=== PATIENT | male | born 1955 | race Caucasian/White ===

== ENCOUNTER 2020-09-13 16:04 | Outpatient (REF) | payer MEDICARE, OTHER, SELFPAY | END 2020-09-13 16:05 | disposition home or self-care (01) | LOC: HO.LAB 16:04 | PROVIDERS: PCP Internal Medicine; Visit Provider Internal Medicine | DX: Z20.828 Contact with and (suspected) exposure to other viral communicable diseases (principal) | CPT/HCPCS: C9803; U0003 ==

== ENCOUNTER 2021-03-26 20:21 | Emergency (ER) | payer MEDICARE, OTHER, SELFPAY ==
--- NOTE | 2021-03-26 | ECG_ITS ---
Test Reason : ARRYTHMIA Blood Pressure : / mmHG Vent. Rate : 065 BPM Atrial Rate : 065 BPM P-R Int : 124 ms QRS Dur : 144 ms QT Int : 444 ms P-R-T Axes : 048 -29 027 degrees QTc Int : 461 ms Normal sinus rhythm Right bundle branch block Abnormal ECG When compared with ECG of 10-JUN-2020 20:34, No significant change was found Referred By: Generic ED Physician Electronically Signed By:Deangelo Santos
--- NOTE | ~2021-03-26 | XR_ITS ---
EXAMINATION: XR CHEST CLINICAL INFORMATION: Rule out pulmonary edema. COMPARISON: 06/10/2020 TECHNIQUE: Frontal view of the chest was obtained. FINDINGS: Normal cardiac and mediastinal silhouette. Cardiac leads overlie the chest. Lungs are well-expanded. No focal consolidation, effusion, edema or pneumothorax. No acute osseous abnormality seen. XR/XR chest 1V IMPRESSION: No focal consolidation or edema seen.
[2021-03-26 20:29] VITALS: BP 152/94; PULSE 69; RESP 18; TEMP 36.6; O2SAT 95; BMI 24.0
[2021-03-26 21:08] LABS: MANUAL DIFF FLAG NO
[2021-03-26 21:10] LABS: Basophils Percent Auto 0.6 % (0-2); Eosinophils Absolute Auto 0.3 X10*3/uL (0.0-0.4); Eosinophils Percent Auto 4.2 % (0-4); Hematocrit 45.3 % (42-52); Hemoglobin 15.3 g/dl (14.0-18.0); Imm Gran Abs Auto 0.03 X10*3/uL (0.00-0.03); Imm Gran Pct Auto 0.4 % (0.0-0.4); Lymphocytes Percent Auto 28.6 % (20-40); Mean Corpuscular HGB Conc 33.8 g/dl (31.0-36.0); Mean Corpuscular Volume 85.8 fL (80-98); Mean Platelet Volume 9.7 fL (9.4-12.4); Monocytes Absolute Auto 0.7 X10*3/uL (0.1-1.2); Monocytes Percent Auto 9.4 % (2-11); Neutrophils Percent Auto 56.8 % (45-73); Platelet Count 246 X10*3/uL (160-400); Red Blood Count 5.28 X10*6/uL (4.60-5.80); Red Cell Distribution Width 13.6 % (11.0-16.0); White Blood Count 7.1 X10*3/uL (4.8-10.8)
[2021-03-26 21:28] LABS: Anion Gap 15 (12-20); Blood Urea Nitrogen 21 mg/dL (9-16); Calcium 9.6 mg/dL (8.4-10.2); Carbon Dioxide 26 mmol/L (22-29); Chloride 106 mmol/L (96-108); Creatinine Clr Calc Pharmacy 77.9; Estimated Glomerular Filt Rate > 60; Glucose Random 101 mg/dL (60-115); Potassium 4.5 mmol/L (3.3-5.1); Sodium 142 mmol/L (135-145)
[2021-03-26 21:35] LABS: Troponin-I High Sensitivity < 3.5 ng/L (<3.5-35.0)
[2021-03-26 22:57] VITALS: BP 157/88; PULSE 52; TEMP 36.4; O2SAT 97
[2021-03-26 23:49] VITALS: PULSE 54
[2021-03-26 23:55] VITALS: BP 155/89; PULSE 57; RESP 18; O2SAT 98
--- NOTE | 2021-03-27 00:35 | ED_ITS ---
HPI - Arrhythmia/Palpitations General Chief Complaint: Arrhythmia/Palpitations Stated Complaint: ?Irregular arrhythmia Time Seen by Provider: 03/27/21 00:05 Source: patient Mode of arrival: ambulatory Limitations: no limitations History of Present Illness HPI narrative: Patient comes emergency room complaining of feeling nauseous, not feeling quite right, palpitations/rapid heart rate. Patient states earlier this afternoon, Related Data Previous Rx's Medication Instructions Recorded [id number] 3.5 1 drp OPHTHALMIC (EYE) Q6H 10 Days 03/01/21 mg/mL-10,000 unit/mL-0.1% eye drops #5 ml Allergies Allergy/AdvReac Type Severity Reaction Status Date / Time codeine [CODEINE] Allergy Severe PASSED Verified 03/26/21 20:44 OUT , Passed out [facility] Past Medical History Medical History (Updated 03/27/21 @ 02:14 by Olivia Diop MD) Atrial flutter Surgical History (Updated 03/26/21 @ 20:41 by Tabatha Palomo RN) History of cardiac radiofrequency ablation Social History Social History Alcohol intake: current Alcohol intake frequency: 0-2 drinks per day Alcohol type: beer Patient Tobacco Use Status: Never used Tobacco Smoked in Last 30 Days: No Use of substances other than those prescribed or required for medical reasons: No Advance Directives: No Advance Directives Information Provided: No Physical Exam Vital Signs: Vital Signs: Last Vital Signs Temp 97.6 F 03/26/21 22:57 Pulse 57 03/26/21 23:55 Resp 18 03/26/21 23:55 BP 155/89 H 03/26/21 23:55 Pulse Ox 98 03/26/21 23:55 Body Mass Index 24.0 Course Course Course Narrative: Patient states that since he has been in the emergency room, he feels much better, no longer feeling lousy , denies palpitations, chest pain or shortness of breath. Patient has been on the vehicle monitor technician and he has been in constant sinus rhythm. Chest x-ray within normal limits, BMP normal, troponin x2 normal. I discussed with the patient and his that the cardiology consult is pending, at this time, it seems that Dr. Santos is likely in the cardiac catheterization lab. Patient states that he feels well and would like to be discharged home, does not want to wait for the cardiology consult. I discussed the options with the patient, we can start him on low-dose metoprolol twice a day until he follows up with cardiology on Sunday. Patient states that at this time he does not want to start metoprolol scheduled because metoprolol makes him feel tired, he prefers to take it PRN, he states that he has enough tablets at home. I discussed with the patient that he has any further or repeating symptoms, he needs to return to the emergency room, agrees with plan. On discharge, blood pressure 143/86, heart rate 86. MDM - Arrhythmia/Palpitations Lab Data Result diagrams: 03/26/21 21:03 03/26/21 21:03 Labs: Lab Results 03/26/21 03/26/21 03/26/21 Range/Units 21: 21:03 21:03 WBC 7.1 (4.8-10.8) X10*3/uL RBC 5.28 (4.60-5.80) X10*6/uL Hgb 15.3 (14.0-18.0) g/dl Hct 45.3 (42-52) % MCV 85.8 (80-98) fL MCH 29.0 (27.0-33.0) pg MCHC 33.8 (31.0-36.0) g/dl RDW 13.6 (11.0-16.0) % Plt Count 246 (160-400) X10*3/uL MPV 9.7 (9.4-12.4) fL Immature Gran % (Auto) 0.4 (0.0-0.4) % Neut % (Auto) 56.8 (45-73) % Lymph % (Auto) 28.6 (20-40) % Titus % (Auto) 9.4 (2-11) % Eos % (Auto) 4.2 H (0-4) % Baso % (Auto) 0.6 (0-2) % Lymph # (Auto) 2.0 (1.2-4.9) X10*3/uL Titus # (Auto) 0.7 (0.1-1.2) X10*3/uL Eos # (Auto) 0.3 (0.0-0.4) X10*3/uL Baso # (Auto) 0.0 (0.0-0.2) X10*3/uL Abs Immat Gran (auto) 0.03 (0.00-0.03) X10*3/uL Absolute Neuts (auto) 4.0 (2.0-8.3) X10*3/uL Absolute Nucleated RBC 0.000 (0.0-0.012) X10*3/uL Nucleated RBC % (auto) 0.0 (0.0-0.2) /100WBC Hold Blue Top SEE NOTE Sodium 142 (135-145) mmol/L Potassium 4.5 (3.3-5.1) mmol/L Chloride 106 (96-108) mmol/L Carbon Dioxide 26 (22-29) mmol/L Anion Gap 15 (12-20) BUN 21 H (9-16) mg/dL Creatinine 0.98 (0.5-1.4) mg/dL Estim Creat Clear Calc 77.9 Estimated GFR > 60 Random Glucose 101 (60-115) mg/dL Calcium 9.6 (8.4-10.2) mg/dL Troponin I High Sens (<3.5-35.0) ng/L B-Natriuretic Peptide (<100) pg/mL 03/26/21 03/27/21 Range/Units 21:03 00:34 WBC (4.8-10.8) X10*3/uL RBC (4.60-5.80) X10*6/uL Hgb (14.0-18.0) g/dl Hct (42-52) % MCV (80-98) fL MCH (27.0-33.0) pg MCHC (31.0-36.0) g/dl RDW (11.0-16.0) % Plt Count (160-400) X10*3/uL MPV (9.4-12.4) fL Immature Gran % (Auto) (0.0-0.4) % Neut % (Auto) (45-73) % Lymph % (Auto) (20-40) % Titus % (Auto) (2-11) % Eos % (Auto) (0-4) % Baso % (Auto) (0-2) % Lymph # (Auto) (1.2-4.9) X10*3/uL Titus # (Auto) (0.1-1.2) X10*3/uL Eos # (Auto) (0.0-0.4) X10*3/uL Baso # (Auto) (0.0-0.2) X10*3/uL Abs Immat Gran (auto) (0.00-0.03) X10*3/uL Absolute Neuts (auto) (2.0-8.3) X10*3/uL Absolute Nucleated RBC (0.0-0.012) X10*3/uL Nucleated RBC % (auto) (0.0-0.2) /100WBC Hold Blue Top Sodium (135-145) mmol/L Potassium (3.3-5.1) mmol/L Chloride (96-108) mmol/L Carbon Dioxide (22-29) mmol/L Anion Gap (12-20) BUN (9-16) mg/dL Creatinine (0.5-1.4) mg/dL Estim Creat Clear Calc Estimated GFR Random Glucose (60-115) mg/dL Calcium (8.4-10.2) mg/dL Troponin I High Sens < 3.5 < 3.5 (<3.5-35.0) ng/L B-Natriuretic Peptide 12 (<100) pg/mL Imaging Data Chest x-ray: Radiologist's impression: Normal cardiac and mediastinal silhouette. Cardiac leads overlie the chest. Lungs are well-expanded. No focal consolidation, effusion, edema or pneumothorax. No acute osseous abnormality seen. XR/XR chest 1V IMPRESSION: No focal consolidation or edema seen. ECG Data Attestation: I personally reviewed and interpreted this ECG as follows: (Send rhythm, right bundle branch block, heart rate 65, QTC 461, no acute changes from EKG from May 2020) Discharge Plan Discharge Clinical Impression: Racing heart beat, Malaise Patient Disposition: Home, Self-Care Instructions: Heart Palpitations (ED) Additional Instructions: Please follow-up with your primary care physician tomorrow. If you have any worsening or new symptoms, please return to the emergency room or call 911 Prescriptions: No Action neomycin-polymyxin B-dexameth 3.5mg/mL-10,000 unit/mL-0.1 % drops,suspension 1 drp ophthalmic (eye) Q6H 10 Days Qty: 5 RF: 0 Referrals: Kailash,Uriel, MD [Physician] - 2 days
[2021-03-27 01:55] LABS: B Type Natriuretic Peptide 12 pg/mL (<100); Troponin-I High Sensitivity < 3.5 ng/L (<3.5-35.0)
== END 2021-03-27 02:38 | disposition home or self-care (01) ==
PROVIDERS: Emergency Provider Emergency Medicine; PCP Internal Medicine
DX: R00.2 Palpitations (principal); R06.02 Shortness of breath; R53.81 Other malaise; Z79.899 Other long term (current) drug therapy
CPT/HCPCS: 36415; 71045; 80048; 83880; 84484; 85025; 93005; 99285

== ENCOUNTER 2021-05-12 10:33 | Outpatient (REF) | payer MEDICARE, OTHER, SELFPAY ==
[2021-05-12 10:37] LABS: MANUAL DIFF FLAG NO
[2021-05-12 10:46] LABS: Glucose Urine UA NEG (NEG); Leukocyte Esterase Urine NEG (NEG); Nitrite Urine NEG (NEG); Specific Gravity - Urine 1.025 (1.005-1.025); Urine Blood NEG (NEG); Urine Ketones NEG (NEG); Urine Protein NEG (NEG-TRACE)
[2021-05-12 10:49] LABS: Appearance Urine CLEAR; Basophils Percent Auto 0.5 % (0-2); Color Urine YELLOW; Eosinophils Absolute Auto 0.2 X10*3/uL (0.0-0.4); Eosinophils Percent Auto 2.8 % (0-4); Hematocrit 47.9 % (42-52); Hemoglobin 16.1 g/dl (14.0-18.0); Imm Gran Abs Auto 0.03 X10*3/uL (0.00-0.03); Imm Gran Pct Auto 0.4 % (0.0-0.4); Lymphocytes Absolute Auto 2.6 X10*3/uL (1.2-4.9); Lymphocytes Percent Auto 34.3 % (20-40); Mean Corpuscular HGB Conc 33.6 g/dl (31.0-36.0); Mean Corpuscular Hemoglobin 29.2 pg (27.0-33.0); Mean Corpuscular Volume 86.8 fL (80-98); Monocytes Absolute Auto 0.8 X10*3/uL (0.1-1.2); Monocytes Percent Auto 10.3 % (2-11); Neutrophils Absolute Auto 3.9 X10*3/uL (2.0-8.3); Neutrophils Percent Auto 51.7 % (45-73); Platelet Count 261 X10*3/uL (160-400); Red Blood Count 5.52 X10*6/uL (4.60-5.80); White Blood Count 7.6 X10*3/uL (4.8-10.8)
[2021-05-12 10:58] LABS: Alanine Aminotransferase 22 U/L (0-40); Albumin Level 4.3 g/dL (3.5-5.0); Alkaline Phosphatase 65 U/L (39-117); Anion Gap 12 (12-20); Aspartate Amino Transferase 19 U/L (5-37); Bilirubin Total 1.1 mg/dL (0.0-1.0); Blood Urea Nitrogen 19 mg/dL (9-16); Calcium 9.4 mg/dL (8.4-10.2); Carbon Dioxide 29 mmol/L (22-29); Chloride 103 mmol/L (96-108); Cholesterol 206 mg/dL; Estimated Glomerular Filt Rate > 60; Glucose Fasting 99 mg/dL (60-99); HDL Cholesterol 50 mg/dL; LDL Cholesterol Calculated 135 mg/dl; Potassium 4.1 mmol/L (3.3-5.1); Sodium 140 mmol/L (135-145); Total Protein 6.4 g/dL (6.5-8.0); Triglycerides 105 mg/dL
[2021-05-12 11:00] LABS: Estimated Average Glucose 108 mg/dL; Hemoglobin A1c % 5.4 %
[2021-05-12 11:19] LABS: PSA,Total (Free>4and<10) 0.95 ng/mL (0.00-4.00)
== END 2021-05-12 10:34 | disposition home or self-care (01) ==
LOC: HO.LNP 10:33
PROVIDERS: Visit Provider Internal Medicine
DX: Z12.5 Encounter for screening for malignant neoplasm of prostate (principal); R73.03 Prediabetes; R79.9 Abnormal finding of blood chemistry, unspecified; E78.00 Pure hypercholesterolemia, unspecified
CPT/HCPCS: 80053; 80061; 81003; 83036; 84153; 85025

== ENCOUNTER → 2021-06-16 09:51 | Outpatient (BNVA) | payer MEDICARE, OTHER, SELFPAY | PROVIDERS: PCP Internal Medicine; Visit Provider Internal Medicine | DX: R07.2 Precordial pain (principal); Z98.890 Other specified postprocedural states; Z86.79 Personal history of other diseases of the circulatory system | CPT/HCPCS: 93005; 99212 ==

== ENCOUNTER 2021-07-01 09:31 | Outpatient (REF) | payer MEDICARE, OTHER, SELFPAY ==
[2021-07-01 11:17] LABS: Anion Gap 10 (12-20); Blood Urea Nitrogen 14 mg/dL (9-16); Calcium 9.8 mg/dL (8.4-10.2); Carbon Dioxide 31 mmol/L (22-29); Chloride 106 mmol/L (96-108); Estimated Glomerular Filt Rate > 60; Glucose Random 96 mg/dL (60-115); Sodium 142 mmol/L (135-145)
== END 2021-07-01 09:32 | disposition home or self-care (01) ==
LOC: HO.LAB 09:31
PROVIDERS: PCP Internal Medicine; Visit Provider Internal Medicine
DX: R07.2 Precordial pain (principal)
CPT/HCPCS: 36415; 80048

== ENCOUNTER → 2021-07-01 14:36 | Outpatient (REF) | payer MEDICARE, OTHER, SELFPAY | LOC: HO.CARD 14:36 | PROVIDERS: Visit Provider Internal Medicine | DX: Z13.89 Encounter for screening for other disorder (principal) ==

== ENCOUNTER → 2021-07-04 07:38 | Outpatient (REF) | payer MEDICARE, OTHER, SELFPAY ==
--- NOTE | 2021-07-04 07:41 | CA_ITS ---
Transthoracic Echocardiogram Patient (Last, First, Middle): Asher Cano W Gender: Male Date of : 1955 Age: 65 Procedure Date: 07/04/2021 Procedure Type: Transthoracic Echocardiogram Location: OP Height: 180.34 cm Weight: 78.02 kg BSA: 1.98 m2 Heart Rate: bpm BP: 130 / 80 mmHg Printer Slotter Operator: RAYO Referring MD: Uriel Linder MD Symptoms: R07.2 - Precordial pain Study Quality: Fair ECG Rhythm: Sinus Conclusions: - The left ventricular systolic function is normal. The calculated ejection fraction is 58% by biplane method. - No obvious valvular pathology seen on this study. Findings Left Ventricle Normal left ventricular cavity size. There is normal left ventricular wall thickness. The left ventricular systolic function is normal. The calculated ejection fraction is 58% by biplane method. There is no evidence of regional wall motion abnormalities. Diastolic function is normal for age. Right Ventricle Normal right ventricular cavity size and systolic function. Atria Both atria are normal in size. Aortic Valve There is a normal trileaflet aortic valve. There is no aortic valve stenosis. There is no aortic valve regurgitation. Mitral Valve The mitral valve appears normal. There is no mitral valve regurgitation. There is no mitral valve stenosis. Pulmonic Valve The pulmonic valve was not well visualized. Tricuspid Valve Normal tricuspid valve structure. There is trace tricuspid valve regurgitation. The pulmonary artery systolic pressure is normal. Great Vessels The aortic arch is normal in size. Top normal ascending aortic size at 3.9cm. Venous The inferior vena cava is normal in size and collapses greater than 50% with inspiration. Pericardium/Pleural There is no evidence of pericardial effusion. Prior Study Comparison No significant change compared to prior study dated: 11/14/2019. Recommendations, Care & Conclusions No obvious valvular pathology seen on this study. Measurements 2D Linear Measurements IVSd: 0.98 0.6-0.9/0.6-1.0 cm LVIDd: 4.95 3.9-5.3/4.2-5.9 cm LVIDd Index: 2.50 2.4-3.2/2.2-3.1 cm/m2 LVIDs: 2.76 2.0-3.6 cm LVPWd: 0.91 0.7-1.1 cm Ao Root: 4.10 2.1-3.5 cm LA Diam: 3.20 2.7-3.8/3.0-4.0 cm LAIDs Index: 1.62 1.5-2.3 cm/m2 LV Mass: 206.24 67-162/88-224 g LV Mass Index: 104.16 43-95/49-115 g/m2 LVOT Diam: 2.00 3.0+(-)1.3 cm 2D Systolic Function EF 4C: 55.40 >55% EF 2C: 65.50 >55% EF BiP: 57.80 >55% Mitral Valve MV Pk E: 0.50 MV PK A: 0.53 MV Decel Time: 251.00 E/A: 0.90 E'Lateral: 9.36 E'Medial: 8.16 E/E' Med: 6.10 E/E' Lat: 5.30 PHT: 73.00 MVA PHT: 3.01 Decel [place]: 1.98 Aortic Valve AoV Pk Parth: 1.23 AoV Mn Parth: 0.84 AoV VTI: 0.24 AoV Pk Grad: 6.00 Aov Mn Grad: 3.00 BRITTANY Cont.VTI: 2.69 LVOT LVOT Pk Parth: 1.05 LVOT Mn Parth: 0.71 LVOT VTI: 0.20 LVOT Pk Grad: 4.00 LVOT Mn Grad: 2.00 LVOT Diam: 2.00 LVOT Area: 3.14 Diastolic Function MV Pk E: 0.50 MV Pk A: 0.53 E/A: 0.90 E'Medial: 8.16 E/E' Med: 6.10 E' Laterial: 9.36 E/E' Lat: 5.30 Right Ventricle TAPSE (mm): 1.92 TVS' Parth: 12.80 Tricuspid Valve TR Pk Parth: 1.74 TR Pk Grad: 12.00 RA Press: 3.00 RVSP: 15.00 Great Vessels Aorta Ao Root-2D: 4.10 2.0-3.7 cm Ao Asc: 3.90 2.1-3.4 cm Ao Arch: 3.20 Updated in Other Vendor System with Status of Final Uriel Linder MD electronically signed on 07/05/2021 12:32:13 PM with status of Final
== END ==
LOC: HO.CARD 07:38
PROVIDERS: Visit Provider Internal Medicine
DX: R07.2 Precordial pain (principal)
CPT/HCPCS: 93306

== ENCOUNTER → 2021-08-08 13:28 | Outpatient (BNVA) | payer MEDICARE, OTHER, SELFPAY | PROVIDERS: PCP Internal Medicine; Referring Provider Internal Medicine; Visit Provider Internal Medicine | DX: I25.10 Atherosclerotic heart disease of native coronary artery without angina pectoris (principal); I48.3 Typical atrial flutter; Z98.890 Other specified postprocedural states; Z86.79 Personal history of other diseases of the circulatory system | CPT/HCPCS: 99212 ==

== ENCOUNTER 2021-09-30 10:17 | Outpatient (REF) | payer MEDICARE, OTHER, SELFPAY ==
--- NOTE | ~2021-09-30 | FL_ITS ---
EXAMINATION: XR FLUOROSCOPY UPPER GI WITH AIR CLINICAL INFORMATION: GERD, burping. COMPARISON: None TECHNIQUE: Routine upper GI air-contrast study was performed in the upright and lying positions. FINDINGS: On oral administration of thick barium and effervescent granules, there is normal propagation of the bolus from the oral cavity through the pharynx, esophagus into the stomach without any evidence of obstruction, narrowing or stricture. On placing the patient supine, the course, caliber and peristalsis of the stomach are normal. There is mild gastroesophageal reflux but no hiatal hernia is seen. The mucosal pattern of the esophagus, stomach and the duodenum is normal. FLUOROSCOPY TIME: 1.8 minutes DOSE AREA PRODUCT: 17.35 uGy-m2 (microgray-meter squared) FL/FL upper GI w air IMPRESSION: Mild gastroesophageal reflux without hiatal hernia.
== END 2021-09-30 10:18 | disposition home or self-care (01) ==
LOC: HO.XRAY 10:17
PROVIDERS: Visit Provider Internal Medicine
DX: K21.00 Gastro-esophageal reflux disease with esophagitis, without bleeding (principal)
CPT/HCPCS: 74246

== ENCOUNTER 2021-11-08 06:49 | Outpatient (REF) | payer MEDICARE, OTHER, SELFPAY ==
[2021-11-08 07:28] LABS: Alanine Aminotransferase 27 U/L (0-40); Albumin Level 4.4 g/dL (3.5-5.0); Alkaline Phosphatase 68 U/L (39-117); Aspartate Amino Transferase 21 U/L (5-37); Bilirubin Direct 0.4 mg/dL (0.0-0.5); Cholesterol 147 mg/dL; HDL Cholesterol 51 mg/dL; LDL Cholesterol Calculated 80 mg/dl; Total Protein 6.7 g/dL (6.5-8.0); Triglycerides 84 mg/dL
== END 2021-11-08 06:50 | disposition home or self-care (01) ==
LOC: HO.LAB 06:49
PROVIDERS: PCP Internal Medicine; Visit Provider Internal Medicine
DX: I25.10 Atherosclerotic heart disease of native coronary artery without angina pectoris (principal); E78.5 Hyperlipidemia, unspecified
CPT/HCPCS: 36415; 80061; 80076

== ENCOUNTER 2022-01-31 10:21 | Day surgery (SDC) | payer MEDICARE, OTHER, SELFPAY ==
[2022-01-26 10:00] VITALS: BMI 24.3
--- NOTE | 2022-01-30 10:43 | HO.ANESPROP2 ---
Documented by User: Supriya Moran NP 01/30/22 10:53 HPI - Anesthesia Eval Consult details Narrative: 66yo M for Upper Endoscopy and Colonoscopy [facility] Active Problems Active Problems: All Active Problems (Updated 01/26/22 @ 09:54 by Julienne Marcano RN) Eye foreign body (Acute) Abrasion of sclera of left eye (Acute) Status post ablation of atrial flutter (Acute) Precordial chest pain (Acute) Atherosclerotic cardiovascular disease (Acute) Typical atrial flutter (Acute) Past Medical History Medical History (Updated 01/30/22 @ 10:45 by Supriya Moran NP) Elevated cholesterol Typical atrial flutter Surgical History Surgical History (Updated 01/26/22 @ 09:54 by Julienne Marcano RN) H/O colonoscopy History of cardiac radiofrequency ablation Hx of appendectomy Social History Social History Alcohol intake: current Alcohol intake frequency: 0-2 drinks per day Alcohol type: beer Patient Tobacco Use Status: Never used Tobacco Advance Directives: No Advance Directives Information Provided: Yes Advance Directives on File: No Meds Allergies Allergy/AdvReac Type Severity Reaction Status Date / Time codeine [CODEINE] Allergy Severe passed Verified 01/26/22 10:00 out Exam Exam Date and Time: January 30, 2022 1043 Height,Weight and Vital Signs: Height 5 ft 11 in Weight 78.925 kg Pertinent Lab Results Pertinent Lab Results: Laboratory Tests 05/12/21 07/01/21 07:25 09:41 WBC 7.6 Hgb 16.1 Hct 47.9 Plt Count 261 Sodium 142 Potassium 5.0 D Chloride 106 Carbon Dioxide 31 H BUN 14 Creatinine 1.00 Narrative Narrative: EKG 05/2021 sinus rhythm at 69/Min; leftward axis; right bundle-branch block and similar to prior. ECHO 06/2021 Conclusions: - The left ventricular systolic function is normal.? The ? calculated ejection fraction is 58% by biplane method. ? - No obvious valvular pathology seen on this study.?? Per cardiac note: Coronary CT shows nonobstructive coronary disease but nothing of significance. Assessment and Plan Assessment Anesthesia Assessment: Chart Reviewed Documented by User: Jose Francisco Costa MD 01/31/22 12:22 PMF Past Medical History Medical History (Updated 01/30/22 @ 10:45 by Supriya Moran NP) Elevated cholesterol Typical atrial flutter Family History Family history of problems with anesthesia: No Surgical History Surgical History (Updated 01/26/22 @ 09:54 by Julienne Marcano RN) H/O colonoscopy History of cardiac radiofrequency ablation Hx of appendectomy History of Problems with Anesthesia: No Social History Social History Alcohol intake: current Alcohol intake frequency: 0-2 drinks per day Alcohol type: beer Patient Tobacco Use Status: Never used Tobacco Advance Directives: No Advance Directives Information Provided: Yes Advance Directives on File: No Meds Allergies Allergy/AdvReac Type Severity Reaction Status Date / Time codeine [CODEINE] Allergy Severe passed Verified 01/26/22 10:00 out Exam Airway Mallampati Class: II TM Dist: >3cm Neck ROM: Full Assessment and Plan Assessment Anesthesia Assessment: Anesthesia Plan Discussed Final Anesthetic Review Family History of Problems with Anesthesia: No History of Problems with Anesthesia: No NPO: Yes ASA Class: II Final Preanesthetic Review: No Changes in Pt Med Stat, Meds/Allgs Chart Reviewed, Consent Obtained/Reviewed and Anes Risks/Benef Reviewed Patient Risk: Low Procedure Risk: Low Anesthetic Plan Anesthetic Plan: MAC: Disposition: Standard PACU
[2022-01-31 11:01] VITALS: BP 141/92; PULSE 91; RESP 16; TEMP 36.9; O2SAT 98; BMI 24.0
[2022-01-31] MEDS: Lactated Ringers 1,000 ML 100 ML IVCONT (11:11)
--- NOTE | 2022-01-31 12:17 | MHC.SHP ---
Pre-Procedural Eval Section A Date of Service: 01/31/22 The patient is an INPATIENT: No Changes since office visit: No Cold of Flu in the past 2 weeks, No New Medical Problems, No Changes in Medication and No Patient answered all questions The History & Physical has been completed within 30 days and I have reviewed it.: Yes Section B Chief Complaint: screening,reflux disease Allergies: Allergies Allergy/AdvReac Type Severity Reaction Status Date / Time codeine [CODEINE] Allergy Severe passed Verified 01/26/22 10:00 out Plan I have reviewed the history and physical and performed a pertinent physical examination on my patient. No changes have occurred unless specified.
--- NOTE | 2022-01-31 13:21 | PM.OP ---
Brief Operative Note Date of Service: 01/31/22 Pre-op diagnosis: screening gerd Post-op diagnosis: same (colon polyps) Procedure: egd, colon Surgeon: Kevin Jaimes Anesthesia: MAC Was an Internet Marketing Manager used for this Procedure?: No Estimated blood loss (mL): 5 Pathology: other (see req) Condition: stable Disposition: PACU
[2022-01-31 13:25] VITALS: BP 93/47; PULSE 85; RESP 14; TEMP 36.6; O2SAT 97
[2022-01-31 13:40] VITALS: BP 110/71; PULSE 72; RESP 17; TEMP 36.1; O2SAT 99
--- NOTE | 2022-01-31 23:41 | OP_ITS ---
SURGEON: Kevin Jaimes MD INDICATIONS: 1. Gastroesophageal reflux disease. 2. Colon cancer screening. PREOPERATIVE DIAGNOSIS: POSTOPERATIVE DIAGNOSIS: PROCEDURE PERFORMED: 1. Upper endoscopy with biopsy. 2. Colonoscopy to the terminal ileum with biopsy, snare polypectomy, and cauterization of colon polyps. ESTIMATED BLOOD LOSS: COMPLICATIONS: ANESTHESIA: Medications, monitored anesthesia care. ASSISTANTS: SPECIMENS: DESCRIPTION OF PROCEDURE: History and physical performed. The risks and benefits of the procedure were explained to the patient. Informed consent was obtained. The patient was placed in the left lateral decubitus position. The Olympus video gastroscope was introduced into the esophagus, stomach, and duodenum. Examination was performed, and the scope was removed. He was repositioned for colonoscopy. Digital rectal exam was performed and was found to be normal. The Olympus pediatric video colonoscope was introduced into the rectum and advanced to the cecum without difficulty. The cecum was identified by transillumination, palpation, and identification of the ileocecal valve. Examination was performed. The scope was removed. He tolerated both procedures well and was taken to recovery area in stable condition. FINDINGS: Upper endoscopy: 1. Esophagus: The esophagus was normal. There was no esophagitis. There was a 1 cm area of possible Ramirez esophagus at the EG junction. Biopsies were obtained in all 4 quadrants at the EG junction. 2. Stomach: The stomach was normal. Antral biopsies were obtained to rule out H pylori. 3. Duodenum: The bulb and second portion were normal. Colonoscopy: The terminal ileum was normal. In the cecum, were about a total of 6 polyps, the largest measuring approximately 12 mm. These were removed with a snare biopsy forceps and the bases of several along the ileocecal valve were cauterized. The quality of the prep was good. No other polyps were identified. There was mild diverticulosis. Retroflexed examination showed small internal hemorrhoids. IMPRESSION: 1. Gastroesophageal reflux disease. 2. Colon polyps. RECOMMENDATION: Follow up the biopsy results. MD GOLDY Cantu/SHRUTHIL / [phone]
== END 2022-01-31 13:57 | disposition home or self-care (01) ==
PROVIDERS: PCP Internal Medicine; Visit Provider Internal Medicine Gastroenterology
PROC: (CPT 45385; principal; 2022-01-31 11:30)
DX: Z12.11 Encounter for screening for malignant neoplasm of colon (principal); D12.0 Benign neoplasm of cecum; K21.9 Gastro-esophageal reflux disease without esophagitis; K22.70 Barrett's esophagus without dysplasia; E78.00 Pure hypercholesterolemia, unspecified; I48.3 Typical atrial flutter; Z79.899 Other long term (current) drug therapy; Z88.8 Allergy status to other drugs, medicaments and biological substances
CPT/HCPCS: 45385; 45380; 43239; 88305; 88342

== ENCOUNTER 2022-05-16 11:25 | Outpatient (REF) | payer MEDICARE, OTHER, SELFPAY ==
[2022-05-16 11:31] LABS: MANUAL DIFF FLAG NO
[2022-05-16 11:43] LABS: Basophils Percent Auto 0.7 % (0-2); Eosinophils Absolute Auto 0.2 X10*3/uL (0.0-0.4); Eosinophils Percent Auto 2.5 % (0-4); Hematocrit 45.2 % (42.0-52.0); Hemoglobin 15.4 g/dl (14.0-18.0); Imm Gran Abs Auto 0.02 X10*3/uL (0.00-0.03); Imm Gran Pct Auto 0.3 % (0.0-0.4); Lymphocytes Percent Auto 33.6 % (20-40); Mean Corpuscular HGB Conc 34.1 g/dl (31.0-36.0); Mean Corpuscular Hemoglobin 29.2 pg (27.0-33.0); Mean Corpuscular Volume 85.6 fL (80.0-98.0); Mean Platelet Volume 10.3 fL (9.4-12.4); Monocytes Absolute Auto 0.6 X10*3/uL (0.1-1.2); Neutrophils Absolute Auto 3.2 x10*3/uL (2.0-8.3); Neutrophils Percent Auto 52.9 % (45-73); Platelet Count 225 X10*3/uL (160-400); Red Blood Count 5.28 X10*6/uL (4.60-5.80); Red Cell Distribution Width 13.5 % (11.0-16.0)
[2022-05-16 11:46] LABS: Estimated Average Glucose 108 mg/dL; Hemoglobin A1c % 5.4 %
[2022-05-16 12:05] LABS: Appearance Urine CLEAR; Color Urine YELLOW; Glucose Urine UA NEG (NEG); Leukocyte Esterase Urine NEG (NEG); Nitrite Urine NEG (NEG); Specific Gravity - Urine >= 1.030 (1.005-1.025); Urine Blood NEG (NEG); Urine Ketones 5 MG/DL (NEG); Urine Protein NEG (NEG-TRACE)
[2022-05-16 12:07] LABS: Creatinine Urine 249.52 mg/dL; Microalbum/Creatinine Ratio Ur 7.2 ug/mg cr
[2022-05-16 12:13] LABS: Alanine Aminotransferase 54 U/L (0-40); Albumin Level 4.2 g/dL (3.5-5.0); Alkaline Phosphatase 71 U/L (39-117); Anion Gap 12 (12-20); Aspartate Amino Transferase 35 U/L (5-37); Bilirubin Total 0.7 mg/dL (0.0-1.0); Blood Urea Nitrogen 20 mg/dL (9-16); Calcium 8.5 mg/dL (8.4-10.2); Carbon Dioxide 27 mmol/L (22-29); Chloride 107 mmol/L (96-108); Cholesterol 115 mg/dL; Estimated Glomerular Filt Rate > 60; Glucose Fasting 83 mg/dL (60-99); HDL Cholesterol 36 mg/dL; LDL Cholesterol Calculated 69 mg/dl; Potassium 3.7 mmol/L (3.3-5.1); Sodium 142 mmol/L (135-145); Total Protein 6.1 g/dL (6.5-8.0); Triglycerides 52 mg/dL
[2022-05-16 12:33] LABS: PSA,Total (Free>4and<10) 0.65 ng/mL (0.00-4.00)
[2022-05-16 15:17] LABS: Bacteria Urine 1+ /LPF; RBC Urine 0 /HPF (0); WBC Urine 0 /HPF (0-4)
== END 2022-05-16 11:26 | disposition home or self-care (01) ==
LOC: HO.LNP 11:25
PROVIDERS: Visit Provider Internal Medicine
DX: Z12.5 Encounter for screening for malignant neoplasm of prostate (principal); E78.00 Pure hypercholesterolemia, unspecified; R73.03 Prediabetes
CPT/HCPCS: 80053; 80061; 81001; 82043; 83036; 84153; 85025

== ENCOUNTER 2022-07-20 04:52 | Observation (INO) | payer MEDICARE, OTHER, SELFPAY ==
[2022-07-20] VITALS (8 sets, daily range): BP systolic 117–158; BP diastolic 2–82; PULSE 59–79; RESP 15–18; TEMP 36.3–36.8; O2SAT 97–100; BMI 24.0
--- NOTE | ~2022-07-20 | XR_ITS ---
EXAMINATION: XR CHEST CLINICAL INFORMATION: Syncope COMPARISON: 03/27/2021 TECHNIQUE: Frontal view of the chest was obtained. FINDINGS: Lungs are well-inflated and clear. Trachea is midline in position. No interstitial disease, consolidation or mass. No pleural effusion or pneumothorax. Cardiac silhouette and pulmonary vessels are normal in size. The mediastinum and bryant have normal contour. The visualized bones, and upper abdomen, are unremarkable. XR/XR chest 1V IMPRESSION: No acute cardiopulmonary abnormality.
--- NOTE | 2022-07-20 04:57 | ECG_ITS ---
Test Reason : SYNCPC Blood Pressure : / mmHG Vent. Rate : 063 BPM Atrial Rate : 063 BPM P-R Int : 132 ms QRS Dur : 142 ms QT Int : 432 ms P-R-T Axes : 067 -45 051 degrees QTc Int : 442 ms Normal sinus rhythm Right bundle branch block Left anterior fascicular block Bifascicular block Abnormal ECG When compared with ECG of 26-MAR-2021 20:33, Left anterior fascicular block is now Present Referred By: Generic ED Physician Electronically Signed By:SUMI ROGEL
[2022-07-20 06:04] LABS: MANUAL DIFF FLAG NO
[2022-07-20 06:07] LABS: Basophils Absolute Auto 0.1 X10*3/uL (0.0-0.2); Basophils Percent Auto 0.4 % (0-2); Eosinophils Absolute Auto 0.1 X10*3/uL (0.0-0.4); Eosinophils Percent Auto 1.1 % (0-4); Hematocrit 49.7 % (42.0-52.0); Hemoglobin 17.1 g/dl (14.0-18.0); Imm Gran Abs Auto 0.07 X10*3/uL (0.00-0.03); Imm Gran Pct Auto 0.6 % (0.0-0.4); Lymphocytes Absolute Auto 1.8 X10*3/uL (1.2-4.9); Lymphocytes Percent Auto 15.7 % (20-40); Mean Corpuscular HGB Conc 34.4 g/dl (31.0-36.0); Mean Corpuscular Hemoglobin 29.2 pg (27.0-33.0); Mean Corpuscular Volume 84.8 fL (80.0-98.0); Mean Platelet Volume 9.9 fL (9.4-12.4); Monocytes Percent Auto 9.1 % (2-11); Neutrophils Absolute Auto 8.2 x10*3/uL (2.0-8.3); Neutrophils Percent Auto 73.1 % (45-73); Platelet Count 243 X10*3/uL (160-400); Red Blood Count 5.86 X10*6/uL (4.60-5.80); Red Cell Distribution Width 13.6 % (11.0-16.0); White Blood Count 11.2 X10*3/uL (4.8-10.8)
[2022-07-20 06:11] LABS: Blood Urea Nitrogen 23 mg/dL (9-16); Chloride 105 mmol/L (96-108); Estimated Glomerular Filt Rate > 60; Potassium 4.1 mmol/L (3.3-5.1); Sodium 144 mmol/L (135-145)
[2022-07-20 06:12] LABS: Basophils Absolute Auto 0.1 X10*3/uL (0.0-0.2); Basophils Percent Auto 0.4 % (0-2); Eosinophils Absolute Auto 0.1 X10*3/uL (0.0-0.4); Eosinophils Percent Auto 1.1 % (0-4); Hematocrit 49.7 % (42.0-52.0); Hemoglobin 17.1 g/dl (14.0-18.0); Imm Gran Abs Auto 0.07 X10*3/uL (0.00-0.03); Imm Gran Pct Auto 0.6 % (0.0-0.4); Lymphocytes Absolute Auto 1.8 X10*3/uL (1.2-4.9); Lymphocytes Percent Auto 15.7 % (20-40); MANUAL DIFF FLAG NO; Mean Corpuscular HGB Conc 34.4 g/dl (31.0-36.0); Mean Corpuscular Hemoglobin 29.2 pg (27.0-33.0); Mean Corpuscular Volume 84.8 fL (80.0-98.0); Mean Platelet Volume 9.9 fL (9.4-12.4); Monocytes Percent Auto 9.1 % (2-11); Neutrophils Absolute Auto 8.2 x10*3/uL (2.0-8.3); Neutrophils Percent Auto 73.1 % (45-73); Platelet Count 243 X10*3/uL (160-400); Red Blood Count 5.86 X10*6/uL (4.60-5.80); Red Cell Distribution Width 13.6 % (11.0-16.0); White Blood Count 11.2 X10*3/uL (4.8-10.8)
[2022-07-20 06:18] LABS: Troponin-I High Sensitivity 3.9 ng/L (<3.5-35.0)
[2022-07-20 06:25] LABS: Prothrombin Time 11.3 SEC (10.0-13.1)
--- NOTE | 2022-07-20 06:56 | ED.SYNCOPE ---
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 Yesterday he notes it was much worse and he also notes increased urination last night to the point he was up and out of bed trying to urinate throughout the night. He got up and syncopized (had dizziness and sweats prior to the event) his came to him and he tried to get up several times and had several episodes of LOC as well. She checked his BP 50/30. She gave him ASA 324mg. He has never had this happen before. He denies GIB symptoms. MD complaint: loss of consciousness and collapsed Onset (ago): hour(s) (just prior to arrival ) -: minutes(s) Prodromal symptoms: lightheaded, diaphoresis and nausea/vomiting Witnessed: Yes - by Bystander () Context: getting out of bed, after urination and standing up Injuries sustained associated with event: none Current symptoms: nausea and abdominal pain (fullness in epigastric area) History: other (flutter) Treatments prior to arrival: other (aspirin) Related Data Home Medications Medication Instructions Recorded Confirmed omeprazole 20 mg capsule,delayed 20 mg PO DAILY 07/20/22 07/20/22 release Previous Rx's Medication Instructions Recorded atorvastatin 20 mg tablet 20 mg PO QPM #90 tabs 08/08/21 Allergies Allergy/AdvReac Type Severity Reaction Status Date / Time codeine [CODEINE] Allergy Severe passed Verified 01/26/22 10:00 out Review of Systems Review of Systems: Constitutional : No Weight loss, No Fever, No Chills, No Fatigue, No Malaise ENT/Mouth : No sore throat, No Rhinorrhea Eyes: No Eye Pain, No Swelling, No Redness Cardiovascular : No Chest Pain, No SOB, No Dyspnea on Exertion, No Orthopnea, No Edema, No Palpitations Respiratory : No Cough, No Sputum, No Wheezing Gastrointestinal : pos Nausea, No Vomiting, No Diarrhea, No Constipation, No abdominal Pain, No Hematochezia, No Melena Genitourinary : No Dysuria, No Urinary Frequency, No Hematuria, Musculoskeletal : No joint pain, No Myalgias, No Joint Swelling Skin : No Skin Lesions, No rash Neuro : No Weakness, No Numbness, No Dizziness, No Headache, pos syncope Psych : No Anxiety/Panic, No Depression Heme/Lymph: No Bruising, No Bleeding,No Lymphadenopathy Endocrine : No Polyuria, No Polydipsia All other systems reviewed and are negative [facility] Past Medical History Attestation statement: The following information was validated with the patient. Medical History Elevated cholesterol Typical atrial flutter Surgical History H/O colonoscopy History of cardiac radiofrequency ablation Hx of appendectomy Social History Social History Alcohol intake: current Alcohol intake frequency: 0-2 drinks per day Alcohol type: beer Patient Tobacco Use Status: Never used Tobacco Advance Directives: No Physical Exam Vital Signs: Vital Signs: Last Vital Signs Temp 98.3 F 07/20/22 05:26 Pulse 67 07/20/22 08:58 Resp 16 07/20/22 07:46 BP 117/78 07/20/22 08:58 Pulse Ox 99 07/20/22 07:46 O2 Del Method 07/20/22 07:46 BMI result Body Mass Index 24.0 Appearance: Alert. Oriented X3. No acute distress. Eyes: Pupils equal, round and reactive to light. ENT: Pharynx normal. Neck: Normal inspection. Neck supple. CVS: Normal heart rate and rhythm. Pulses normal. Respiratory: No respiratory distress. Breath sounds normal. Abdomen: Soft and nontender. Skin: Skin warm and dry. Normal skin color. Normal skin turgor. Extremities: No lower extremity edema. No calf ttp Neuro: Oriented X 3. No motor deficit. No sensory deficit. Course Course Course Narrative: neg orthostatic VS MDM - Syncope MDM Narrative Medical decision making narrative: 66 yo male with hx of barretts, aflutter s/p ablation here with c/o syncope x multiple episodes and feeling of belching and inability to void. At this time will need labs, troponin x 2, IVF, ddimer, given episodes will need corner cutter overnight. Planned admit. Lab Data Result diagrams: 07/20/22 05:29 07/20/22 05:10 Labs: Lab Results 07/20/22 07/20/22 07/20/22 Range/Units 05:10 05:10 05:10 WBC 11.2 H (4.8-10.8) X10*3/uL RBC 5.86 H (4.60-5.80) X10*6/uL Hgb 17.1 (14.0-18.0) g/dl Hct 49.7 (42.0-52.0) % MCV 84.8 (80.0-98.0) fL MCH 29.2 (27.0-33.0) pg MCHC 34.4 (31.0-36.0) g/dl RDW 13.6 (11.0-16.0) % Plt Count 243 (160-400) X10*3/uL MPV 9.9 (9.4-12.4) fL Immature Gran % (Auto) 0.6 H (0.0-0.4) % Neut % (Auto) 73.1 H (45-73) % Lymph % (Auto) 15.7 L (20-40) % [place] % (Auto) 9.1 (2-11) % Eos % (Auto) 1.1 (0-4) % Baso % (Auto) 0.4 (0-2) % Lymph # (Auto) 1.8 (1.2-4.9) X10*3/uL [place] # (Auto) 1.0 (0.1-1.2) X10*3/uL Eos # (Auto) 0.1 (0.0-0.4) X10*3/uL Baso # (Auto) 0.1 (0.0-0.2) X10*3/uL Abs Immat Gran (auto) 0.07 H (0.00-0.03) X10*3/uL Absolute Neuts (auto) 8.2 (2.0-8.3) x10*3/uL Absolute Nucleated RBC 0.000 (0.0-0.012) X10*3/uL Nucleated RBC % (auto) 0.0 (0.0-0.2) /100WBC PT (10.0-13.1) SEC INR (0.9-1.1) D-Dimer High Sensitivty NG/ML Sodium 144 (135-145) mmol/L Potassium 4.1 (3.3-5.1) mmol/L Chloride 105 (96-108) mmol/L Carbon Dioxide 28 (22-29) mmol/L Anion Gap 15 (12-20) BUN 23 H (9-16) mg/dL Creatinine 1.06 (0.5-1.4) mg/dL Estim Creat Clear Calc 71.0 Estimated GFR > 60 Random Glucose 97 (60-115) mg/dL Calcium 10.0 D (8.4-10.2) mg/dL Magnesium 2.1 (1.6-2.6) mg/dL Total Bilirubin 0.9 (0.0-1.0) mg/dL Direct Bilirubin 0.4 (0.0-0.5) mg/dL AST 26 (5-37) U/L ALT 37 (0-40) U/L Alkaline Phosphatase 68 (39-117) U/L Troponin I High Sens 3.9 (<3.5-35.0) ng/L Total Protein 6.7 (6.5-8.0) g/dL Albumin 4.5 (3.5-5.0) g/dL COVID-19 (KATELYNN) (Negative) COVID-19 Clin Com 07/20/22 07/20/22 07/20/22 Range/Units 05:10 05:29 07:19 WBC 11.2 H (4.8-10.8) X10*3/uL RBC 5.86 H (4.60-5.80) X10*6/uL Hgb 17.1 (14.0-18.0) g/dl Hct 49.7 (42.0-52.0) % MCV 84.8 (80.0-98.0) fL MCH 29.2 (27.0-33.0) pg MCHC 34.4 (31.0-36.0) g/dl RDW 13.6 (11.0-16.0) % Plt Count 243 (160-400) X10*3/uL MPV 9.9 (9.4-12.4) fL Immature Gran % (Auto) 0.6 H (0.0-0.4) % Neut % (Auto) 73.1 H (45-73) % Lymph % (Auto) 15.7 L (20-40) % [place] % (Auto) 9.1 (2-11) % Eos % (Auto) 1.1 (0-4) % Baso % (Auto) 0.4 (0-2) % Lymph # (Auto) 1.8 (1.2-4.9) X10*3/uL [place] # (Auto) 1.0 (0.1-1.2) X10*3/uL Eos # (Auto) 0.1 (0.0-0.4) X10*3/uL Baso # (Auto) 0.1 (0.0-0.2) X10*3/uL Abs Immat Gran (auto) 0.07 H (0.00-0.03) X10*3/uL Absolute Neuts (auto) 8.2 (2.0-8.3) x10*3/uL Absolute Nucleated RBC 0.000 (0.0-0.012) X10*3/uL Nucleated RBC % (auto) 0.0 (0.0-0.2) /100WBC PT 11.3 (10.0-13.1) SEC INR 1.0 (0.9-1.1) D-Dimer High Sensitivty < 150 NG/ML Sodium (135-145) mmol/L Potassium (3.3-5.1) mmol/L Chloride (96-108) mmol/L Carbon Dioxide (22-29) mmol/L Anion Gap (12-20) BUN (9-16) mg/dL Creatinine (0.5-1.4) mg/dL Estim Creat Clear Calc Estimated GFR Random Glucose (60-115) mg/dL Calcium (8.4-10.2) mg/dL Magnesium (1.6-2.6) mg/dL Total Bilirubin (0.0-1.0) mg/dL Direct Bilirubin (0.0-0.5) mg/dL AST (5-37) U/L ALT (0-40) U/L Alkaline Phosphatase (39-117) U/L Troponin I High Sens (<3.5-35.0) ng/L Total Protein (6.5-8.0) g/dL Albumin (3.5-5.0) g/dL COVID-19 (KATELYNN) Negative (Negative) COVID-19 Clin Com See Note 07/20/22 Range/Units 08:44 WBC (4.8-10.8) X10*3/uL RBC (4.60-5.80) X10*6/uL Hgb (14.0-18.0) g/dl Hct (42.0-52.0) % MCV (80.0-98.0) fL MCH (27.0-33.0) pg MCHC (31.0-36.0) g/dl RDW (11.0-16.0) % Plt Count (160-400) X10*3/uL MPV (9.4-12.4) fL Immature Gran % (Auto) (0.0-0.4) % Neut % (Auto) (45-73) % Lymph % (Auto) (20-40) % [place] % (Auto) (2-11) % Eos % (Auto) (0-4) % Baso % (Auto) (0-2) % Lymph # (Auto) (1.2-4.9) X10*3/uL [place] # (Auto) (0.1-1.2) X10*3/uL Eos # (Auto) (0.0-0.4) X10*3/uL Baso # (Auto) (0.0-0.2) X10*3/uL Abs Immat Gran (auto) (0.00-0.03) X10*3/uL Absolute Neuts (auto) (2.0-8.3) x10*3/uL Absolute Nucleated RBC (0.0-0.012) X10*3/uL Nucleated RBC % (auto) (0.0-0.2) /100WBC PT (10.0-13.1) SEC INR (0.9-1.1) D-Dimer High Sensitivty NG/ML Sodium (135-145) mmol/L Potassium (3.3-5.1) mmol/L Chloride (96-108) mmol/L Carbon Dioxide (22-29) mmol/L Anion Gap (12-20) BUN (9-16) mg/dL Creatinine (0.5-1.4) mg/dL Estim Creat Clear Calc Estimated GFR Random Glucose (60-115) mg/dL Calcium (8.4-10.2) mg/dL Magnesium (1.6-2.6) mg/dL Total Bilirubin (0.0-1.0) mg/dL Direct Bilirubin (0.0-0.5) mg/dL AST (5-37) U/L ALT (0-40) U/L Alkaline Phosphatase (39-117) U/L Troponin I High Sens 3.5 (<3.5-35.0) ng/L Total Protein (6.5-8.0) g/dL Albumin (3.5-5.0) g/dL COVID-19 (KATELYNN) (Negative) COVID-19 Clin Com ECG Data Attestation: I personally reviewed and interpreted this ECG as follows: ECG interpretation date: 07/20/22 ECG interpretation time: 06:57 Interpretation: Rate: 63 Rhythm: NSR Mcclure: left Normal P waves. Normal PHAN. RBBB ST T wave : no CHRISTOPHER, nonspecific qTC: normal prior studies: no sig change from priors The study has been interpreted contemporaneously by me. . Discharge Plan Discharge Clinical Impression: Syncope Qualifiers: Syncope type: unspecified Qualified Code(s): R55 - Syncope and collapse Patient Disposition: Admitted As Inpatient
[2022-07-20 07:40] LABS: D Dimer High Sensitivity < 150 NG/ML
[2022-07-20 07:49] LABS: Alanine Aminotransferase 37 U/L (0-40); Albumin Level 4.5 g/dL (3.5-5.0); Alkaline Phosphatase 68 U/L (39-117); Anion Gap 15 (12-20); Aspartate Amino Transferase 26 U/L (5-37); Bilirubin Direct 0.4 mg/dL (0.0-0.5); Bilirubin Total 0.9 mg/dL (0.0-1.0); Carbon Dioxide 28 mmol/L (22-29); Glucose Random 97 mg/dL (60-115); Magnesium 2.1 mg/dL (1.6-2.6); Total Protein 6.7 g/dL (6.5-8.0)
[2022-07-20 07:54] LABS: COVID-19 Test Negative (Negative); IDNOW Serial# 16C4AD1C
[2022-07-20] MEDS: Famotidine/PF 20 MG/2 ML VIAL IVPUSH (08:46)
[2022-07-20] MEDS: Lactated Ringers 1,000 ML 999 ML IV (08:50)
[2022-07-20 09:10] LABS: Troponin-I High Sensitivity 3.5 ng/L (<3.5-35.0)
--- NOTE | 2022-07-20 09:52 | PHA.MEDREC ---
Pharmacy Consult ? Medication Reconciliation Pharmacy has completed the medication reconciliation. SPOKE WITH PT. LAST TOOK BOTH MEDS LAST NIGHT
--- NOTE | 2022-07-20 11:40 | P.HPHOSP_ITS ---
History of Present Illness Date of Service: 07/20/22 Chief Complaint: syncope This is a 66 yo M with a PMH of HLD, A. flutter - s/p ablation, GERD/Ramirez's esophagus who presents to the hospital after syncopal episode this AM. The patient's is bedside and helps corroborate the story. He reports that he was in his usual state of health until he went to bed the evening prior to hospitalization. He reports getting up 6 times to urinate within about 1 hour. He denies straining or weak stream and in fact reports urinating a large amount each time. He denies any dysuria, hematuria. He denies excessive fluid intake. He denies heavy EtOH use. After the 6th episode, he was able to sleep for about 3 hours before having frequency/urgeny again. When he sat up from bed, he felt lightheaded and gave himself to stablize. He attempted to walk to the bathroom and had a syncopal episode on the way there. His arrived immediately and while he was attempting to sit up, she noticed that he was passing out again. During this time, his BP was noted to be in the 50s systolic. 325mg aspirin was given and he was brought to the ED. Work up in the ED showed sinus rhythm, HS trop-I flat x 2; CBC/CMP esseintally within normal limits. He will be admitted for cardiology eval / telemonitoring. Review of Systems Review of Systems: negative except HPI [facility] Medical History Elevated cholesterol Typical atrial flutter Surgical History H/O colonoscopy History of cardiac radiofrequency ablation Hx of appendectomy Social History Alcohol intake: current Alcohol intake frequency: 0-2 drinks per day Alcohol type: beer Patient Tobacco Use Status: Never used Tobacco Advance Directives: No Meds Allergies Allergy/AdvReac Type Severity Reaction Status Date / Time codeine [CODEINE] Allergy Severe passed Verified 01/26/22 10:00 out Active Medications: Current Medications Pharmacy Consult (Consult Rx Perform Med Rec) 1 each MISCELLANE ONCE PRN PRN Reason: Consult order Home Medications Medication Instructions Recorded Confirmed Last Taken Type atorvastatin 20 mg tablet 20 mg PO BEDTIME 07/20/22 07/20/22 Unknown History omeprazole 20 mg capsule,delayed 20 mg PO BEDTIME 07/20/22 07/20/22 07/19/22 History release Physical Exam Vital Signs and Narrative: Vital Signs: Last Vital Signs Temp 98.3 F 07/20/22 05:26 Pulse 67 07/20/22 08:58 Resp 16 07/20/22 07:46 BP 117/78 07/20/22 08:58 Pulse Ox 99 07/20/22 07:46 O2 Del Method 07/20/22 07:46 BMI result Body Mass Index 24.0 Const: Other: Constitutional - Awake and Alert, No apparent distress Eyes - PERRLA, EOMI Cardiovascular - S1S2, RRR, No edema Respiratory - Normal lung expansion, Normal respiratory effort, No respiratory distress, CTA bilaterally Gastrointestinal - NT / ND; +BS; No rebound or guarding - No CVA tenderness Extremities - no calf tenderness bilaterally, no swelling Musculoskeletal - Normal inspection, normal ROM Skin - Warm/Dry Neurological - Alert & oriented x3, No focal deficit Psychological - Appropriate affect Results Labs CBC and Chem 7: 07/20/22 05:29 07/20/22 05:10 Labs: Laboratory Results - last 24 hr 07/20/22 07/20/22 07/20/22 05:10 05:10 05:10 MCV 84.8 MCH 29.2 MCHC 34.4 RDW 13.6 Plt Count 243 MPV 9.9 Immature Gran % (Auto) 0.6 H Neut % (Auto) 73.1 H Lymph % (Auto) 15.7 L [place] % (Auto) 9.1 Eos % (Auto) 1.1 Baso % (Auto) 0.4 Lymph # (Auto) 1.8 [place] # (Auto) 1.0 Eos # (Auto) 0.1 Baso # (Auto) 0.1 Abs Immat Gran (auto) 0.07 H Absolute Neuts (auto) 8.2 Absolute Nucleated RBC 0.000 Nucleated RBC % (auto) 0.0 PT INR D-Dimer High Sensitivty Anion Gap 15 Estim Creat Clear Calc 71.0 Estimated GFR > 60 Random Glucose 97 Calcium 10.0 D Magnesium 2.1 Total Bilirubin 0.9 Direct Bilirubin 0.4 AST 26 ALT 37 Alkaline Phosphatase 68 Troponin I High Sens 3.9 Total Protein 6.7 Albumin 4.5 COVID-19 (KATELYNN) COVID-19 Clin Com 07/20/22 07/20/22 07/20/22 05:10 05:29 07:19 MCV 84.8 MCH 29.2 MCHC 34.4 RDW 13.6 Plt Count 243 MPV 9.9 Immature Gran % (Auto) 0.6 H Neut % (Auto) 73.1 H Lymph % (Auto) 15.7 L [place] % (Auto) 9.1 Eos % (Auto) 1.1 Baso % (Auto) 0.4 Lymph # (Auto) 1.8 [place] # (Auto) 1.0 Eos # (Auto) 0.1 Baso # (Auto) 0.1 Abs Immat Gran (auto) 0.07 H Absolute Neuts (auto) 8.2 Absolute Nucleated RBC 0.000 Nucleated RBC % (auto) 0.0 PT 11.3 INR 1.0 D-Dimer High Sensitivty < 150 Anion Gap Estim Creat Clear Calc Estimated GFR Random Glucose Calcium Magnesium Total Bilirubin Direct Bilirubin AST ALT Alkaline Phosphatase Troponin I High Sens Total Protein Albumin COVID-19 (KATELYNN) Negative COVID-19 Clin Com See Note 07/20/22 08:44 MCV MCH MCHC RDW Plt Count MPV Immature Gran % (Auto) Neut % (Auto) Lymph % (Auto) [place] % (Auto) Eos % (Auto) Baso % (Auto) Lymph # (Auto) [place] # (Auto) Eos # (Auto) Baso # (Auto) Abs Immat Gran (auto) Absolute Neuts (auto) Absolute Nucleated RBC Nucleated RBC % (auto) PT INR D-Dimer High Sensitivty Anion Gap Estim Creat Clear Calc Estimated GFR Random Glucose Calcium Magnesium Total Bilirubin Direct Bilirubin AST ALT Alkaline Phosphatase Troponin I High Sens 3.5 Total Protein Albumin COVID-19 (KATELYNN) COVID-19 Clin Com Imaging Radiologist's Impressions: Impressions Chest X-Ray 07/20/22 08:30 IMPRESSION: No acute cardiopulmonary abnormality. Assessment and Plan (1) Syncope: Qualifiers: Syncope type: unspecified Qualified Code(s): R55 - Syncope and collapse Status: Acute Plan 66 yo M with HLD and A. Flutter s/p ablation who presents after syncopal episodes. He will be observed with cardiology on board. 1. Syncope Orthostatics negative NSR on tele at this time; continue with telemonitoring consult cardiology for further recs 2. HLD statin 3. Urinary frequency check UA denies other symptoms of UTI such as dysuria 4. history of A. Flutter s/p ablation not on any meds for his monitor on tele 5. Ramirez's esophagus / GERD PPI Full Code DVT pptx, low risk -- early ambulation + mechanical Quality Stroke Does the patient have a stroke diagnosis?: No VTE Prior VTE?: No VTE Risk Level:: Medical - low VTE Device Contraindication: N/A - Device Ordered VTE Drug Contraindication: Treatment Not Indicated
--- NOTE | 2022-07-20 12:30 | PC.NURSE ---
pt alert and oriented, skin pwd, respirations even and unlabored, pt denies pain at this time, but states he has been having this pressure/gas in the epigastric/chest area that comes and goes for a couple of months,
[2022-07-20] MEDS: 0.9 % Sodium Chloride Flush 3 ML SYRINGE IVFLUSH ×2 (16:43→21:39)
--- NOTE | 2022-07-20 21:28 | MHC.CM.PN ---
ABIMAEL 07/20. Met with pt placed to OBS with bed assignment pending. A&O x4. Independent. Very knowledgeable regarding his medical condition. Lives with /HCP [place] [facility] ([phone]). HCP not on file. Copy requested. [employer] X[employer]/ [employer]. No DME/services. D/C plan: Home without services. will transport. CM to follow for d/c planning.
[2022-07-20] MEDS: Atorvastatin Calcium 20 MG TABLET PO (21:38)
[2022-07-21 03:51] VITALS: BP 133/77; PULSE 76; TEMP 36.4; O2SAT 97
[2022-07-21] MEDS: Omeprazole 20 MG CAPSULE.DR PO (06:15)
[2022-07-21 08:09] VITALS: BP 144/72; PULSE 88; RESP 24; TEMP 36.7; O2SAT 98
[2022-07-21] MEDS: 0.9 % Sodium Chloride Flush 3 ML SYRINGE IVFLUSH (08:13)
[2022-07-21 08:47] LABS: Appearance Urine Clear; Color Urine Dark Yellow; Glucose Urine UA Negative (Negative); Leukocyte Esterase Urine Negative (Negative); Nitrite Urine Negative (Negative); PH 5.5 (5.0-9.0); Specific Gravity - Urine >= 1.030 (1.005-1.025); Urine Blood Negative (Negative); Urine Ketones Trace mg/dL (Negative); Urine Protein Trace mg/dL (Neg-Trace)
--- NOTE | 2022-07-21 10:58 | PC.NURSE ---
Patient refused bed alarm. Agrees to ring if he has dizziness for assistance
[2022-07-21 11:26] VITALS: BP 137/80; PULSE 64; RESP 18; TEMP 36.7; O2SAT 99
--- NOTE | 2022-07-21 11:34 | P.CONCA_ITS ---
History of Present Illness History of Present Illness Date of Service: 07/21/22 Requesting physician: Mana Cantu Chief complaint: Syncope Narrative: Pleasant 66-year-old gentleman who is presenting with syncope. He has history of atrial flutter for which she underwent ablation in the past. He said he was having heart rates in 150s when he picked up on [employer] at that time he had fatigue and tiredness only he did not have any palpitations. He also had polyuria after the episodes of atrial flutter and he was told that this could be related to ANP release. He underwent atrial flutter ablation a year ago. Yesterday he had 6 episodes of polyuria and past significant moderate urine and after that became dizzy and passed out. His checked his heart rate and blood pressure when he passed out and his blood pressure was 50/30 and heart rate was 50. This was checked twice in the numbers were consistent. He was brought to the emergency department and then admitted for further management. He has Ramirez's esophagus and significant belching and has been following with Dr. Jaimes. No chest pain otherwise with exertion. Clinically stable currently. Labs an EKG reviewed. [facility] Past Medical History Medical History Elevated cholesterol Typical atrial flutter Surgical History Surgical History H/O colonoscopy History of cardiac radiofrequency ablation Hx of appendectomy Social History Social History Alcohol intake: current Alcohol intake frequency: 0-2 drinks per day Alcohol type: beer Patient Tobacco Use Status: Never used Tobacco Advance Directives Date on File: 07/21/22 service: No Current occupational status: retired Meds Allergies Allergy/AdvReac Type Severity Reaction Status Date / Time codeine [CODEINE] Allergy Severe passed Verified 01/26/22 10:00 out Active Medications: Current Medications Acetaminophen (Acetaminophen 325 Mg Tablet) 650 mg PO Q6H PRN PRN Reason: Pain, Mild (Pain Scale 1-3) Atorvastatin Calcium (Atorvastatin Calcium 20 Mg Tablet) 20 mg PO BEDTIME [facility] Last Admin: 07/20/22 21:38 Dose: 20 mg Omeprazole (Omeprazole 20 Mg Lars.) 20 mg PO DAILY@0630 [facility] Last Admin: 07/21/22 06:15 Dose: 20 mg Ondansetron HCl (Ondansetron Hcl 4 Mg/2 Ml Vial) 4 mg IVPUSH Q8H PRN PRN Reason: Nausea and Vomiting Pharmacy Consult (Consult Rx Perform Med Rec) 1 each MISCELLANE ONCE PRN PRN Reason: Consult order Sodium Chloride (0.9 % Sodium Chloride Flush 3 Ml Syringe) 3 ml IVFLUSH QSHIFT [facility] Last Admin: 07/21/22 08:13 Dose: 3 ml Home Medications Medication Instructions Recorded Confirmed Last Taken Type atorvastatin 20 mg tablet 20 mg PO BEDTIME 07/20/22 07/20/22 Unknown History omeprazole 20 mg capsule,delayed 20 mg PO BEDTIME 07/20/22 07/20/22 07/19/22 History release Physical Exam Vital Signs: Vital Signs: Last Vital Signs Temp 98.0 F 07/21/22 11:26 Pulse 64 07/21/22 11:26 Resp 18 07/21/22 11:26 BP 137/80 07/21/22 11:26 Pulse Ox 99 07/21/22 11:26 O2 Del Method 07/21/22 11:26 BMI result Body Mass Index 24.0 GENERAL APPEARANCE: in no acute distress, pleasant. NECK: no carotid bruit, no jugular venous distention. SKIN: no suspicious lesions, warm and dry. HEART: no murmurs, regular rate and rhythm. LUNGS: clear to auscultation bilaterally. ABDOMEN: soft, nontender. EXTREMITIES: no edema. PERIPHERAL PULSES: equal. NEUROLOGIC: No gross deficits, AAO X 3 Objective Labs and Meds Result diagrams: 07/20/22 05:29 07/20/22 05:10 Lab results: Laboratory Results - last 24 hr 07/21/22 08:25 Urine Color Dark Yellow Urine Appearance Clear Urine pH 5.5 Ur Specific [place] >= 1.030 H Urine Protein Trace Urine Glucose (UA) Negative Urine Ketones Trace Urine Blood Negative Urine Nitrite Negative Ur Leukocyte Esterase Negative Assessment and Plan (1) Syncope: Qualifiers: Syncope type: unspecified Qualified Code(s): R55 - Syncope and collapse Status: Acute Plan Pleasant 66-year-old gentleman presenting with syncope. Clinical history is consistent with vasovagal syncope due to micturition. His heart rate and blood pressure were really low pointing to vasovagal event triggered by dehydration and micturition. He previously had polyuria after atrial flutter episodes. He is concerned that he has recurrent atrial flutter. So far we have not observe any arrhythmia. I have advised him that we should arrange a cardiac event monitor for him. Can be discharged back home. Advised him to hydrate himself well. Thank you for allowing me to participate in the care of your patient. Please f eel free to contact me if you have any questions. Procedures Date of Service Date of Service: 07/21/22
--- NOTE | 2022-07-21 14:01 | PM.DS ---
DS: Providers Provider Date of Service: 07/21/22 Date of admission: 07/20/22 11:37 Date of discharge: 07/21/22 Primary care physician: Johnnie Hawk MD Consults: 07/20/22 11:39 Consult to Cardiology Routine Consulting Provider: Deangelo Santos Reason for consultation: syncope, prior history of ablation Attending physician on discharge: Devendra Stapleton Discharging clinician: Mana Cantu DS: Diagnosis Discharge Diagnosis (1) Syncope: Status: Acute (2) Ramirez esophagus: Status: Acute DS: Summary Hospital Course Hospital Course: From H&P on day of admission This is a 66 yo M with a PMH of HLD, A. flutter - s/p ablation, GERD/Ramirez's esophagus who presents to the hospital after syncopal episode this AM. The patient's is bedside and helps corroborate the story. He reports that he was in his usual state of health until he went to bed the evening prior to hospitalization. He reports getting up 6 times to urinate within about 1 hour. He denies straining or weak stream and in fact reports urinating a large amount each time. He denies any dysuria, hematuria. He denies excessive fluid intake. He denies heavy EtOH use. After the 6th episode, he was able to sleep for about 3 hours before having frequency/urgeny again. When he sat up from bed, he felt lightheaded and gave himself to stablize. He attempted to walk to the bathroom and had a syncopal episode on the way there. His arrived immediately and while he was attempting to sit up, she noticed that he was passing out again. During this time, his BP was noted to be in the 50s systolic. 325mg aspirin was given and he was brought to the ED.? Work up in the ED showed sinus rhythm, HS trop-I flat x 2; CBC/CMP essentially within normal limits. He will be admitted for cardiology eval / telemonitoring. syncope. orthostatic vital signs were checked and were negative. no arrhythmia thus far on telemetry.Patient was seen in consultation by cardiology who felt syncope was likely vasovagal. recommended outpatient cardiac event monitor Which will be arranged by the cardiology office. frequent bloating/belching. discussed with GI, Possibly atypical acid reflux symptoms. will increase dose Of omeprazole to twice daily for the next 2 weeks, if no improvement outpatient follow-up with Dr. Jaimes. Can continue to use simethicone as needed. Frequent urination. Urinalysis was negative. Recommend outpatient follow-up with Urology if continues Time Spent with Patient Time attestation: Total time spent providing and/or coordinating discharge services: Discharge coordination time: Greater than 30 minutes Quality: Safe Use of Opioids Does Pt have an Active Cancer Diagnosis on the Problem List?: No Quality: Stroke Does the patient have a stroke diagnosis?: No Physical Exam Vital Signs: Vital Signs: Last Vital Signs Temp 98.0 F 07/21/22 11:26 Pulse 64 07/21/22 11:26 Resp 18 07/21/22 11:26 BP 137/80 07/21/22 11:26 Pulse Ox 99 07/21/22 11:26 O2 Del Method 07/21/22 11:26 BMI result Body Mass Index 24.0 Const: General: cooperative, comfortable, no acute distress, alert and awake Nutritional Appearance: average body habitus Orientation/consciousness: patient oriented x3 Resp: Effort & Inspection: normal respiratory effort and able to speak in complete sentences Auscultation: clear to auscultation bilaterally Cardio: Rate: regular rate Heart sounds: S1 normal heart sound present and S2 normal heart sound present GI: Inspection: No distended Palpation (GI): Soft to palpation and nontender Neuro: General: patient oriented x3 and CN's II-XI intact bilaterally Extrem: General: Yes no pedal edema DS: Data Data Completed and Pending Labs on day of discharge: Laboratory Results - last 24 hr 07/21/22 08:25 Urine Color Dark Yellow Urine Appearance Clear Urine pH 5.5 Ur Specific [place] >= 1.030 H Urine Protein Trace Urine Glucose (UA) Negative Urine Ketones Trace Urine Blood Negative Urine Nitrite Negative Ur Leukocyte Esterase Negative Discharge Plan Discharge Patient Disposition: Home, Self-Care Referrals: Johnnie Hawk MD [Primary Care Provider] - 1 Week Deangelo Santos MD [Physician] - 1 Week Discharge Medications: New omeprazole 20 mg capsule,delayed release(DR/EC) 20 mg PO BID 30 Days Qty: 60 0RF Continued atorvastatin 20 mg tablet 20 mg PO BEDTIME Discontinued omeprazole 20 mg capsule,delayed release(DR/EC) 20 mg PO BEDTIME Discharge Orders: Discharge Order (Routine); Ordered 07/21/22 Ordered By: Mana Cantu Activity on Discharge: As tolerated Stand Alone Forms: Patient Portal Discharge page Care Plan Goals: see below Health Concerns: syncope, likely vasovagal in nature probable atypical acid reflux Plan of Treatment: Recommend outpatient cardiac event monitor - cardiology office should reach out to you. If you have not heard from them by early next week call the office. can continue to use simethicone as needed for bloating/gas/frequent belching recommend to increase omeprazole to 20 mg twice daily for the next two weeks - If no improvement in symptoms, call to schedule outpatient follow-up appointment with Dr. Jaimes's office. Frequent urination - no evidence of Urinary tract infection Assessment: Admitted for syncope. see discharge summary Discharge Date/Time: 07/21/22 15:15
--- NOTE | 2022-07-21 14:25 | MHC.CM.PN ---
PT MEDICALLY CLEARED FOR D/C HOME SELF-CARE, FAMILILY FOR YTRANSPORT
== END 2022-07-21 15:15 | disposition home or self-care (01) ==
LOC: HO.ED 07:45 → HO.EDOVER 11:50 → HO.S3 07-21 08:39
PROVIDERS: Admitting Provider Family Medicine; Emergency Provider Emergency Medicine; PCP Internal Medicine; Visit Provider Physician Assistant Medical
DX: K22.70 Barrett's esophagus without dysplasia (principal); R55 Syncope and collapse; E78.5 Hyperlipidemia, unspecified; R35.0 Frequency of micturition; Z20.822 Contact with and (suspected) exposure to COVID-19; Z79.899 Other long term (current) drug therapy
CPT/HCPCS: 36415; 71045; 80048; 80076; 81003; 83735; 84484; 85025; 85379; 85610; 87635; 93005; 96365; 96375; 99218; 99285

== ENCOUNTER → 2022-07-28 13:51 | Outpatient (REF) | payer MEDICARE, OTHER, SELFPAY ==
--- NOTE | 2022-07-28 13:55 | HM_ITS ---
TEST PERFORMED: Cardiac event monitoring. ENROLLMENT PERIOD: 07/28/2022, to 08/27/2022; 30 days. INDICATION: Syncope and collapse. REQUESTING PHYSICIAN: Dr. Santos FINDINGS: In the above monitoring period, underlying rhythm is sinus. IVCD noted. Rates ranged from 66 to 100 per minute. Isolated PVC noted. No symptoms documented. CONCLUSION: Essentially unremarkable 30 day monitor showing sinus rhythm only and isolated PVC and no arrhythmias of significance. Uriel Linder MD HS/INGRID / [id number]
== END ==
LOC: HO.CARD 13:51
PROVIDERS: Visit Provider Internal Medicine Cardiovascular Disease
DX: R55 Syncope and collapse (principal)
CPT/HCPCS: 93270

== ENCOUNTER → 2022-09-13 13:22 | Outpatient (BNVA) | payer MEDICARE, OTHER, SELFPAY | PROVIDERS: PCP Internal Medicine; Referring Provider Internal Medicine; Visit Provider Internal Medicine | DX: I25.10 Atherosclerotic heart disease of native coronary artery without angina pectoris (principal); I48.3 Typical atrial flutter; R55 Syncope and collapse | CPT/HCPCS: 99212 ==

== ENCOUNTER 2022-12-08 10:54 | Outpatient (REF) | payer MEDICARE, OTHER, SELFPAY ==
[2022-12-08 11:50] LABS: Estimated Average Glucose 111 mg/dL; Hemoglobin A1c % 5.5 %
[2022-12-08 11:59] LABS: Alanine Aminotransferase 37 U/L (0-40); Albumin Level 4.1 g/dL (3.5-5.0); Alkaline Phosphatase 72 U/L (39-117); Aspartate Amino Transferase 26 U/L (5-37); Bilirubin Direct 0.4 mg/dL (0.0-0.5); Bilirubin Total 1.5 mg/dL (0.0-1.0); Cholesterol 159 mg/dL; Glucose Fasting 87 mg/dL (60-99); HDL Cholesterol 53 mg/dL; LDL Cholesterol Calculated 91 mg/dl; Total Protein 6.1 g/dL (6.5-8.0); Triglycerides 78 mg/dL
[2022-12-08 14:44] LABS: Reflex LDLD? No
== END 2022-12-08 10:55 | disposition home or self-care (01) ==
LOC: HO.LNP 10:54
PROVIDERS: Visit Provider Internal Medicine
DX: R73.03 Prediabetes (principal); E78.00 Pure hypercholesterolemia, unspecified
CPT/HCPCS: 80061; 80076; 82947; 83036

== ENCOUNTER 2023-04-10 12:56 | Outpatient (REF) | payer MEDICARE, OTHER, SELFPAY ==
[2023-04-10 13:02] LABS: Appearance Urine Clear; Color Urine Yellow; Glucose Urine UA Negative (Negative); Leukocyte Esterase Urine Negative (Negative); Nitrite Urine Negative (Negative); PH 6.5 (5.0-9.0); Specific Gravity - Urine 1.025 (1.005-1.025); Urine Blood Negative (Negative); Urine Ketones Negative (Negative); Urine Protein Trace mg/dL (Neg-Trace)
[2023-04-10 13:04] LABS: Bacteria Urine None Seen (None Seen); Hyaline Casts Urine 0-2 /LPF (0-2); RBC Urine 0-2 /HPF (0-2); Squamous Epithelial Cell Urine 0-2 /HPF (0-2); WBC Urine 0-5 /HPF (0-5)
== END 2023-04-10 12:57 | disposition home or self-care (01) ==
LOC: HO.LNP 12:56
PROVIDERS: Visit Provider Internal Medicine
DX: R35.0 Frequency of micturition (principal)
CPT/HCPCS: 81001

== ENCOUNTER 2023-05-18 11:34 | Outpatient (REF) | payer MEDICARE, OTHER, SELFPAY ==
[2023-05-18 11:38] LABS: MANUAL DIFF FLAG NO
[2023-05-18 11:45] LABS: Basophils Absolute Auto 0.1 X10*3/uL (0.0-0.2); Basophils Percent Auto 0.9 % (0-2); Eosinophils Absolute Auto 0.2 X10*3/uL (0.0-0.4); Eosinophils Percent Auto 2.8 % (0-4); Imm Gran Abs Auto 0.01 X10*3/uL (0.00-0.03); Imm Gran Pct Auto 0.2 % (0.0-0.4); Lymphocytes Absolute Auto 2.1 X10*3/uL (1.2-4.9); Mean Corpuscular Hemoglobin 29.4 pg (27.0-33.0); Mean Corpuscular Volume 86.2 fL (80.0-98.0); Mean Platelet Volume 10.8 fL (9.4-12.4); Monocytes Absolute Auto 0.6 X10*3/uL (0.1-1.2); Monocytes Percent Auto 9.2 % (2-11); Neutrophils Absolute Auto 3.4 x10*3/uL (2.0-8.3); Neutrophils Percent Auto 53.9 % (45-73); Platelet Count 212 X10*3/uL (160-400); Red Blood Count 5.45 X10*6/uL (4.60-5.80); Red Cell Distribution Width 13.5 % (11.0-16.0); White Blood Count 6.4 X10*3/uL (4.8-10.8)
[2023-05-18 11:47] LABS: Appearance Urine Clear; Color Urine Yellow; Glucose Urine UA Negative (Negative); Leukocyte Esterase Urine Negative (Negative); Nitrite Urine Negative (Negative); PH 6.5 (5.0-9.0); Specific Gravity - Urine 1.025 (1.005-1.025); Urine Blood Negative (Negative); Urine Ketones Negative (Negative); Urine Protein Trace mg/dL (Neg-Trace)
[2023-05-18 11:50] LABS: Bacteria Urine None Seen (None Seen); Hyaline Casts Urine 0-2 /LPF (0-2); RBC Urine 0-2 /HPF (0-2); Squamous Epithelial Cell Urine 0-2 /HPF (0-2); WBC Urine 0-5 /HPF (0-5)
[2023-05-18 12:01] LABS: Estimated Average Glucose 103 mg/dL; Hemoglobin A1c % 5.2 %
[2023-05-18 12:03] LABS: Alanine Aminotransferase 29 U/L (0-40); Albumin Level 4.2 g/dL (3.5-5.0); Alkaline Phosphatase 67 U/L (39-117); Anion Gap 15 (12-20); Aspartate Amino Transferase 24 U/L (5-37); Bilirubin Total 1.1 mg/dL (0.0-1.0); Blood Urea Nitrogen 21 mg/dL (9-16); Calcium 9.1 mg/dL (8.4-10.2); Carbon Dioxide 25 mmol/L (22-29); Chloride 106 mmol/L (96-108); Cholesterol 124 mg/dL; Estimated Glomerular Filt Rate > 60; Glucose Fasting 98 mg/dL (60-99); HDL Cholesterol 58 mg/dL; LDL Cholesterol Calculated 57 mg/dl; Potassium 4.1 mmol/L (3.3-5.1); Sodium 142 mmol/L (135-145); Total Protein 6.4 g/dL (6.5-8.0); Triglycerides 45 mg/dL
[2023-05-18 12:18] LABS: PSA,Total (Free>4and<10) 1.44 ng/mL (0.00-4.00)
[2023-05-18 12:25] LABS: Creatinine Urine 189.46 mg/dL; Microalbum/Creatinine Ratio Ur 7.9 ug/mg cr
== END 2023-05-18 11:35 | disposition home or self-care (01) ==
LOC: HO.LNP 11:34
PROVIDERS: Visit Provider Internal Medicine
DX: Z12.5 Encounter for screening for malignant neoplasm of prostate (principal); R73.03 Prediabetes; E78.00 Pure hypercholesterolemia, unspecified
CPT/HCPCS: 80053; 80061; 81001; 82043; 83036; 84153; 85025

== ENCOUNTER 2023-09-18 13:40 | Outpatient (AMB) | payer MEDICARE, OTHER, SELFPAY ==
--- NOTE | 2023-09-18 13:41 | A.OFFVIS_ITS ---
Intake Vital Signs 09/18/23 13:42 Height 5 ft 11 in Weight 170 lb 10.205 oz BMI 23.8 BP 152/86 H Blood Pressure Location Lt brachial Position Sitting Pulse 72 Intake Visit Reasons: r/s 1 year followup Intake Note: 1 year follow up w/ EKG [place] Counseling Aide Required: No Accompanied by: Spouse Allergies codeine [CODEINE] Allergy (Severe, Verified 09/18/23 13:48) passed out Medication List - Last Reconciled 09/18/23 by Uriel Linder MD atorvastatin 20 mg PO BEDTIME omeprazole 20 mg PO BID 30 days HPI HPI Comments History of Present Illness Details Asher returns for follow-up. To recall, in the past was seen regarding atrial flutter. After a couple of episodes, he underwent ablation of the same. No recurrence after that. Overall, he states he is feeling fine. Still able to exert a lot physically and still feels fine. No cardiac symptoms whatsoever. [facility] Medical History Elevated cholesterol Typical atrial flutter Surgical History Hx of appendectomy H/O colonoscopy History of cardiac radiofrequency ablation Family History Father No problems noted. Mother No problems noted. Social History (Updated 09/18/23 @ 13:48 by Talisha Lara) Alcohol intake: former Patient Tobacco Use Status: Never used Tobacco Advance Directives Date on File: 07/21/22 service: No Current occupational status: retired Review of Systems Const Denies weakness ENT Denies dizziness Card Denies chest pain, Denies chest pain with activity, Denies syncope, Denies rapid heart rate, Denies pedal edema, Denies edema, Denies leg edema, Denies lightheadedness, Denies palpitations, Denies dyspnea, Denies dyspnea on exertion and Denies orthopnea Resp Denies cough, Denies dyspnea and Denies dyspnea on exertion GI Denies hematochezia and Denies change in stool character Musc Denies abnormal gait, Denies muscle cramps, Denies muscle weakness, Denies numbness, Denies radiating pain into limb and Denies tingling Neuro Denies abnormal gait, Denies dizziness, Denies syncope, Denies numbness, Denies tingling and Denies weakness Endo Denies palpitations Physical Exam Vital Signs: Last Vital Signs Pulse 72 09/18/23 13:42 BP 152/86 H 09/18/23 13:42 BMI result Body Mass Index 23.8 Const General: comfortable and no acute distress Orientation/consciousness: patient oriented x3 HEENT Other: Unremarkable Head: Yes normal to inspection Neck Neck: Yes normal visual inspection Chest Chest palpation & inspection: normal inspection of the chest Resp Auscultation: clear to auscultation bilaterally Cardio Palpation: normal PMI Heart sounds: S1 normal heart sound present, S2 normal heart sound present, no gallops, no murmurs and no rubs GI Palpation (GI): Soft to palpation Back/Spine/Pelvis Other: unremarkable Skin General skin exam: no rashes or lesions noted Neuro General: patient oriented x3 Extrem General: Yes normal to inspection Psych Mental Status: mental status grossly normal Office Procedures EKG Details: EKG with sinus rhythm; 72/Min; right bundle-branch and left anterior fascicular block. Chronic finding. [id number], Complete Assessment & Plan Assessment & Plan (1) Atherosclerotic cardiovascular disease: Code(s): I25.10 - Atherosclerotic heart disease of [place] coronary artery without angina pectoris Plan: Coronary CT shows nonobstructive coronary disease but nothing of significance. Ascending aorta top normal size at sinus of Valsalva. Echocardiogram unremarkable. Stress perfusion imaging study which was unremarkable. Can continue statins. Last LDL 57 mg/dL. Triglycerides 45 mg/dL. (2) Typical atrial flutter: Comment: s/p ablation, no anticoag Code(s): I48.3 - Typical atrial flutter Plan: Status post ablation. No recurrences. (3) Bifascicular block: Code(s): I45.2 - Bifascicular block Plan: Findings and implications discussed. Can be followed by EKGs periodically. Plan Discussed with significant other came for appointment. Total time spent including review of data, counseling, documentation, coordination of care-32 minutes. Coding Level of Care Code Est Pt Level 4 (22178) Diagnoses Atherosclerotic cardiovascular disease I25.10 Typical atrial flutter I48.3 Bifascicular block I45.2 CPT Codes EKG - CPT: 70948-[id number], Complete ([id number])
[2023-09-18 13:42] VITALS: BP 152/86; PULSE 72; BMI 23.8
== END 2023-09-18 14:12 | disposition home or self-care (01) ==
PROVIDERS: PCP Internal Medicine; Visit Provider Internal Medicine
DX: I25.10 Atherosclerotic heart disease of native coronary artery without angina pectoris (principal); I48.3 Typical atrial flutter; I45.2 Bifascicular block
CPT/HCPCS: 93010; 99214

== ENCOUNTER → 2023-09-18 13:40 | Outpatient (BNVA) | payer MEDICARE, OTHER, SELFPAY | PROVIDERS: PCP Internal Medicine; Visit Provider Internal Medicine | DX: I25.10 Atherosclerotic heart disease of native coronary artery without angina pectoris (principal); I48.3 Typical atrial flutter; I45.2 Bifascicular block | CPT/HCPCS: 93005; 99212 ==

== ENCOUNTER 2023-12-14 08:09 | Outpatient (REF) | payer MEDICARE, OTHER, SELFPAY ==
[2023-12-14 10:45] LABS: Estimated Average Glucose 100 mg/dL; Hemoglobin A1c % 5.1 % (<6.0)
[2023-12-14 10:53] LABS: Alanine Aminotransferase 24 U/L (0-40); Albumin Level 4.2 g/dL (3.5-5.0); Alkaline Phosphatase 64 U/L (39-117); Aspartate Amino Transferase 20 U/L (5-37); Bilirubin Direct 0.4 mg/dL (0.0-0.5); Bilirubin Total 1.1 mg/dL (0.0-1.0); Cholesterol 150 mg/dL (<200); Glucose Fasting 95 mg/dL (60-99); HDL Cholesterol 55 mg/dL (>40); LDL Cholesterol Calculated 81 mg/dL (<100); Total Protein 6.3 g/dL (6.5-8.0); Triglycerides 71 mg/dL (<150)
[2023-12-14 12:06] LABS: Reflex LDLD? No
== END 2023-12-14 08:10 | disposition home or self-care (01) ==
LOC: HO.10HDL 08:09
PROVIDERS: Visit Provider Internal Medicine
DX: R73.03 Prediabetes (principal); E78.00 Pure hypercholesterolemia, unspecified
CPT/HCPCS: 36415; 80061; 80076; 82947; 83036

== ENCOUNTER 2024-02-07 15:43 | Outpatient (REF) | payer MEDICARE, OTHER, SELFPAY ==
[2024-02-07 15:53] LABS: MANUAL DIFF FLAG NO
[2024-02-07 16:05] LABS: Appearance Urine Clear; Bacteria Urine None Seen (None Seen); Color Urine Yellow; Glucose Urine UA Negative (Negative); Hyaline Casts Urine 0-2 /LPF (0-2); Leukocyte Esterase Urine Negative (Negative); Nitrite Urine Negative (Negative); PH 5.5 (5.0-9.0); RBC Urine 0-2 /HPF (0-2); Squamous Epithelial Cell Urine 0-2 /HPF (0-2); Urine Blood Negative (Negative); Urine Ketones Negative (Negative); Urine Protein Negative (Neg-Trace); WBC Urine 0-5 /HPF (0-5)
[2024-02-07 16:33] LABS: Basophils Percent Auto 0.6 % (0-2); Eosinophils Absolute Auto 0.2 X10*3/uL (0.0-0.4); Eosinophils Percent Auto 2.4 % (0-4); Imm Gran Abs Auto 0.02 X10*3/uL (0.00-0.03); Imm Gran Pct Auto 0.3 % (0.0-0.4); Lymphocytes Absolute Auto 1.8 X10*3/uL (1.2-4.9); Lymphocytes Percent Auto 28.6 % (20-40); Mean Corpuscular HGB Conc 33.3 g/dl (31.0-36.0); Mean Corpuscular Volume 86.9 fL (80.0-98.0); Monocytes Absolute Auto 0.5 X10*3/uL (0.1-1.2); Monocytes Percent Auto 8.1 % (2-11); Neutrophils Absolute Auto 3.7 x10*3/uL (2.0-8.3); Platelet Count 241 X10*3/uL (160-400); Red Blood Count 5.18 X10*6/uL (4.60-5.80); Red Cell Distribution Width 13.5 % (11.0-16.0); White Blood Count 6.2 X10*3/uL (4.8-10.8)
[2024-02-07 16:35] LABS: Alanine Aminotransferase 35 U/L (0-40); Albumin Level 4.1 g/dL (3.5-5.0); Alkaline Phosphatase 72 U/L (39-117); Anion Gap 10 (12-20); Aspartate Amino Transferase 23 U/L (5-37); Bilirubin Total 0.7 mg/dL (0.0-1.0); Blood Urea Nitrogen 24 mg/dL (9-16); Calcium 9.2 mg/dL (8.4-10.2); Carbon Dioxide 29 mmol/L (22-29); Chloride 107 mmol/L (96-108); Estimated Glomerular Filt Rate > 60; Glucose Fasting 109 mg/dL (60-99); Sodium 142 mmol/L (135-145); Total Protein 6.3 g/dL (6.5-8.0)
[2024-02-07 16:50] LABS: TSH reflex Free T4 1.14 uIU/mL (0.32-4.0)
[2024-02-07 18:59] LABS: Erythrocyte Sedimentation Rate 2 MM/HR (0-15)
== END 2024-02-07 15:44 | disposition home or self-care (01) ==
LOC: HO.LNP 15:43
PROVIDERS: Visit Provider Internal Medicine
DX: R63.4 Abnormal weight loss (principal)
CPT/HCPCS: 80053; 81001; 84443; 85025; 85652

== ENCOUNTER 2024-04-16 07:58 | Outpatient (REF) | payer MEDICARE, OTHER, SELFPAY ==
--- NOTE | ~2024-04-16 | US_ITS ---
EXAMINATION: US ABDOMEN COMPLETE CLINICAL INFORMATION: Gallstones. COMPARISON: None available. TECHNIQUE: Real-time imaging of the abdominal viscera. FINDINGS: PANCREAS: Normal. ABDOMINAL AORTA: The proximal, mid, and distal segments are normal in caliber. INFERIOR VENA CAVA: Visualized portions are normal. LIVER: The liver is normal in size. The liver contour is normal. Parenchymal echogenicity is normal. Within the right hepatic lobe, a 2.6 x 3.8 x 3.4 cm multiseptated cyst is seen. There is no intrahepatic biliary duct dilatation seen. GALLBLADDER: A 5 mm nonmobile polyp is seen. The gallbladder is physiologically distended without evidence of stones, wall thickening or pericholecystic fluid. There is mild layering sludge. COMMON BILE DUCT: Normal in caliber measuring 0.3 cm in diameter. RIGHT KIDNEY: There is an extrarenal pelvis, without roosevelt hydronephrosis. No renal calculi or focal parenchymal lesions. The kidney measures 11.4 cm in maximum dimension. LEFT KIDNEY: At the interpolar aspect, a 4 mm nonobstructing calculus is seen. No hydronephrosis or focal parenchymal lesions. The kidney measures 12.0 cm in maximum dimension. SPLEEN: Normal. The spleen measures 10.3 cm in maximum dimension. FREE FLUID: None. US/US abdomen complete IMPRESSION: 1. A 5 mm nonmobile gallbladder polyp is seen. As a precaution, a repeat abdominal ultrasound examination is recommended in 6 months to ensure stability of this finding. 2. Within the right hepatic lobe, a 3.8 cm multiseptated cyst is seen. As well, consider follow-up ultrasound imaging in 6 months to ensure stability of this finding. 3. A 4 mm nonobstructing left renal calculus is seen.
== END 2024-04-16 07:59 | disposition home or self-care (01) ==
LOC: HO.US 07:58
PROVIDERS: PCP Internal Medicine; Visit Provider Internal Medicine
DX: K80.20 Calculus of gallbladder without cholecystitis without obstruction (principal)
CPT/HCPCS: 76700

== ENCOUNTER 2024-05-19 11:20 | Outpatient (REF) | payer MEDICARE, OTHER, SELFPAY ==
[2024-05-19 11:23] LABS: MANUAL DIFF FLAG NO
[2024-05-19 11:43] LABS: Basophils Percent Auto 0.6 % (0-2); Eosinophils Absolute Auto 0.2 X10*3/uL (0.0-0.4); Eosinophils Percent Auto 2.3 % (0-4); Hematocrit 46.1 % (42.0-52.0); Hemoglobin 15.9 g/dl (14.0-18.0); Imm Gran Abs Auto 0.02 X10*3/uL (0.00-0.03); Imm Gran Pct Auto 0.3 % (0.0-0.4); Lymphocytes Absolute Auto 2.2 X10*3/uL (1.2-4.9); Lymphocytes Percent Auto 33.2 % (20-40); Mean Corpuscular HGB Conc 34.5 g/dl (31.0-36.0); Mean Corpuscular Hemoglobin 29.9 pg (27.0-33.0); Mean Corpuscular Volume 86.8 fL (80.0-98.0); Mean Platelet Volume 10.1 fL (9.4-12.4); Monocytes Absolute Auto 0.7 X10*3/uL (0.1-1.2); Monocytes Percent Auto 10.6 % (2-11); Neutrophils Absolute Auto 3.5 x10*3/uL (2.0-8.3); Platelet Count 216 X10*3/uL (160-400); Red Blood Count 5.31 X10*6/uL (4.60-5.80); Red Cell Distribution Width 13.7 % (11.0-16.0); White Blood Count 6.6 X10*3/uL (4.8-10.8)
[2024-05-19 11:45] LABS: Appearance Urine Clear; Color Urine Yellow; Glucose Urine UA Negative (Negative); Leukocyte Esterase Urine Negative (Negative); Nitrite Urine Negative (Negative); Urine Blood Negative (Negative); Urine Ketones Negative (Negative); Urine Protein Negative (Neg-Trace)
[2024-05-19 11:48] LABS: Bacteria Urine None Seen (None Seen); Hyaline Casts Urine 0-2 /LPF (0-2); RBC Urine 0-2 /HPF (0-2); Squamous Epithelial Cell Urine 0-2 /HPF (0-2); WBC Urine 0-5 /HPF (0-5)
[2024-05-19 11:54] LABS: Estimated Average Glucose 105 mg/dL; Hemoglobin A1c % 5.3 % (<6.0)
[2024-05-19 12:14] LABS: Alanine Aminotransferase 27 U/L (0-40); Albumin Level 4.3 g/dL (3.5-5.0); Alkaline Phosphatase 59 U/L (39-117); Anion Gap 11 (12-20); Aspartate Amino Transferase 23 U/L (5-37); Blood Urea Nitrogen 21 mg/dL (9-16); Calcium 9.3 mg/dL (8.4-10.2); Carbon Dioxide 29 mmol/L (22-29); Chloride 106 mmol/L (96-108); Cholesterol 152 mg/dL (<200); Estimated Glomerular Filt Rate > 60; Glucose Fasting 102 mg/dL (60-99); HDL Cholesterol 61 mg/dL (>40); LDL Cholesterol Calculated 83 mg/dL (<100); Potassium 4.2 mmol/L (3.3-5.1); Sodium 142 mmol/L (135-145); Total Protein 6.4 g/dL (6.5-8.0); Triglycerides 42 mg/dL (<150)
[2024-05-19 12:23] LABS: Creatinine Urine 158.41 mg/dL; Microalbum/Creatinine Ratio Ur 8.2 ug/mg cr (<30)
== END 2024-05-19 11:21 | disposition home or self-care (01) ==
LOC: HO.LNP 11:20
PROVIDERS: Visit Provider Internal Medicine
DX: R73.09 Other abnormal glucose (principal); E78.00 Pure hypercholesterolemia, unspecified; Z12.5 Encounter for screening for malignant neoplasm of prostate
CPT/HCPCS: 80053; 80061; 81001; 82043; 82570; 83036; 84153; 85025

== ENCOUNTER 2024-06-04 13:45 | Outpatient (REF) | payer MEDICARE, OTHER, SELFPAY ==
--- NOTE | ~2024-06-04 | US_ITS ---
EXAMINATION: US EXTRACRANIAL CAROTID DUPLEX, BILATERAL CLINICAL INFORMATION: Left carotid bruit. COMPARISON: None available. TECHNIQUE: Real-time ultrasound and Doppler techniques (integrating B-mode 2-D vascular images, Doppler spectral analysis and color-flow Doppler imaging) were utilized to interrogate the extracranial carotid arteries, the vertebral arteries and proximal subclavian arteries bilaterally. The degree of stenosis is determined by criteria similar to NASCET. FINDINGS: Right Side: 1. There is mild atherosclerotic plaque seen in the bifurcation/proximal ICA region. 2. The common carotid artery PSV proximally is 137 cm/s and distally 114 cm/s. 3. The proximal internal carotid artery velocities are 80 cm/s systolic and 20 cm/s diastolic. 4. The proximal external carotid artery PSV is 144 cm/s. 5. The vertebral artery shows antegrade flow. 6. The subclavian artery waveforms are normal. Left Side: 1. There is mild atherosclerotic plaque seen in the bifurcation/proximal ICA region. 2. The common carotid artery PSV proximally is 140 cm/s and distally 126 cm/s. 3. The proximal internal carotid artery velocities are 75 cm/s systolic and 23 cm/s diastolic. 4. The proximal external carotid artery PSV is 145 cm/s. 5. The vertebral artery shows and to flow. 6. The subclavian artery waveforms are normal. US/US carotid duplex BI IMPRESSION: 1. RIGHT: Minimal, non-hemodynamically significant stenosis of the proximal right internal carotid artery corresponding to a 0-49% stenosis by velocity criteria. 2. LEFT: Minimal, non-hemodynamically significant stenosis of the proximal left internal carotid artery corresponding to a 0-49% stenosis by velocity criteria.
== END 2024-06-04 13:46 | disposition home or self-care (01) ==
LOC: HO.US 13:45
PROVIDERS: PCP Internal Medicine; Visit Provider Internal Medicine
DX: R09.89 Other specified symptoms and signs involving the circulatory and respiratory systems (principal)
CPT/HCPCS: 93880

== ENCOUNTER 2024-07-08 06:28 | Day surgery (SDC) | payer MEDICARE, OTHER, SELFPAY ==
[2024-07-04 12:37] VITALS: BMI 23.1
--- NOTE | 2024-07-07 09:44 | P.CONAN_ITS ---
Documented by User: Supriya Moran NP 07/07/24 09:45 HPI - Anesthesia Eval Consult details Narrative: 68yo M for Upper Endoscopy and Colonoscopy Follows [facility] cardiology for aflutter s/p ablation without recurrence. Stable at 08/2023 for routine f/u. [facility], [facility] Active Problems Active Problems: All Active Problems Bifascicular block (Acute) Swelling of throat (Acute) Sore throat (Acute) Ramirez esophagus (Acute) Syncope (Acute) Atherosclerotic cardiovascular disease (Acute) Precordial chest pain (Acute) Status post ablation of atrial flutter (Acute) Abrasion of sclera of left eye (Acute) Eye foreign body (Acute) Typical atrial flutter (Acute) Past Medical History Medical History Atherosclerotic cardiovascular disease Ramirez's esophagus Seasonal allergies Elevated cholesterol Typical atrial flutter Family History Family History Father No problems noted. Mother No problems noted. Family history of problems with anesthesia: No Surgical History Surgical History History of esophagogastroduodenoscopy (EGD) (2021) Hx of appendectomy H/O colonoscopy (2021) History of cardiac radiofrequency ablation (~2020) History of Problems with Anesthesia: No Social History Social History Household Members: Spouse Housing: House Are you a primary associate director career services to a significant other at home: No Do you presently have visiting nurse or other home services: No Alcohol intake: former Patient Tobacco Use Status: Never used Tobacco Advance Directives Date on File: 07/21/22 service: No Current occupational status: retired Meds Allergies Allergy/AdvReac Type Severity Reaction Status Date / Time codeine [CODEINE] Allergy Severe passed Verified 07/08/24 06:51 out Exam Height,Weight and Vital Signs: Height 5 ft 11 in Weight 75.296 kg Pertinent Lab Results Pertinent Lab Results: Laboratory Tests 05/19/24 Unknown WBC 6.6 Hgb 15.9 Hct 46.1 Plt Count 216 Sodium 142 Potassium 4.2 Chloride 106 Carbon Dioxide 29 BUN 21 H Creatinine 1.01 Narrative Narrative: EKG 08/2023 sinus rhythm; 72/Min; right bundle-branch and left anterior fascicular block. Chronic finding. Per 08/2023 cardiac visit: Coronary CT shows nonobstructive coronary disease but nothing of significance. Ascending aorta top normal size at sinus of Valsalva. Echocardiogram unremarkable. Stress perfusion imaging study which was unremarkable. Assessment and Plan Assessment Anesthesia Assessment: Chart Reviewed Final Anesthetic Review Family History of Problems with Anesthesia: No History of Problems with Anesthesia: No Documented by User: Kathe Camilo MD 07/08/24 07:59 PMF Past Medical History Medical History Atherosclerotic cardiovascular disease Ramirez's esophagus Seasonal allergies Elevated cholesterol Typical atrial flutter Family History Family History Father No problems noted. Mother No problems noted. Surgical History Surgical History History of esophagogastroduodenoscopy (EGD) (2021) Hx of appendectomy H/O colonoscopy (2021) History of cardiac radiofrequency ablation (~2020) Social History Social History Household Members: Spouse Housing: House Are you a primary associate director career services to a significant other at home: No Do you presently have visiting nurse or other home services: No Alcohol intake: former Patient Tobacco Use Status: Never used Tobacco Advance Directives Date on File: 07/21/22 service: No Current occupational status: retired Meds Allergies Allergy/AdvReac Type Severity Reaction Status Date / Time codeine [CODEINE] Allergy Severe passed Verified 07/08/24 06:51 out Exam Airway Mallampati Class: III TM Dist: >3cm Neck ROM: Full Loose/Missing/Broken Teeth: No Heart: RRR Lungs: CTA Assessment and Plan Assessment Anesthesia Assessment: Anesthesia Plan Discussed Final Anesthetic Review NPO: Yes ASA Class: II Final Preanesthetic Review: Meds/Allgs Chart Reviewed, Consent Obtained/Reviewed and Anes Risks/Benef Reviewed Patient Risk: Low Procedure Risk: Low Anesthetic Plan Anesthetic Plan: MAC: Disposition: Standard PACU
[2024-07-08 06:42] VITALS: BMI 22.1
[2024-07-08] MEDS: Lactated Ringers 1,000 ML 100 ML IVCONT (06:43)
[2024-07-08 07:01] VITALS: BP 157/90; PULSE 93; RESP 18; TEMP 36.8; O2SAT 99
--- NOTE | 2024-07-08 07:46 | P.HPSUR_ITS ---
Pre-Procedural Eval Section A - 24 Hr Update-Section A only Date of Service: 07/08/24 Section B - Complete if H&P > 30 days Chief Complaint: gerd,screening,Ramirez's esophagus Details of Present Illness: seee h&p no changes Relevant Family History (Specify if Yes): No Relevant Social History: None Present Medications: see Short Stay Collaborative assessment Medical History: No relevant PMH History of Previous Operations: No relevant previous surgery Allergies: Allergies Allergy/AdvReac Type Severity Reaction Status Date / Time codeine [CODEINE] Allergy Severe passed Verified 07/08/24 06:51 out Review of Systems Sugical H&P ROS: Negative: Constitution, Cardiovascular, Respiratory, Neurological, Psychiatric, Hem-Onc, Allergic/Immunologic, Gastrointestinal, Genitourinary, Musculoskeletal, Integumentary, Endocrine and Eye s/Ears/Nose/Throat Exam Surgical H&P Exam: Normal: HEENT, Normal: Heart, Normal: Lungs, Normal: Extremities, Normal: Abdomen, Normal: Skin and Normal: Neurological Plan Diagnosis/Plan: Unchanged I have reviewed the history and physical and performed a pertinent physical examination on my patient. No changes have occurred unless specified. Time Spent With Patient Time: Total time managing care of this patient today ____ minutes.
[2024-07-08 08:33] VITALS: BP 110/70; PULSE 80; RESP 18; TEMP 36.4; O2SAT 100
[2024-07-08 08:53] VITALS: BP 113/68; PULSE 71; RESP 17; TEMP 36.1; O2SAT 99
--- NOTE | 2024-07-08 09:00 | OP_ITS ---
DATE OF SERVICE: 07/08/2024 SURGEON: Kevin Jaimes MD INDICATIONS: Colon cancer screening and Ramirez esophagus. PREOPERATIVE DIAGNOSIS: POSTOPERATIVE DIAGNOSIS: PROCEDURE PERFORMED: Upper endoscopy with biopsy, colonoscopy to the terminal ileum. ESTIMATED BLOOD LOSS: COMPLICATIONS: ANESTHESIA: Monitored anesthesia care. ASSISTANTS: SPECIMENS: DESCRIPTION OF PROCEDURE: A history and physical performed. The risks and benefits of the procedure were explained to the patient. Informed consent was obtained. The patient was placed in the left lateral decubitus position. The Olympus video gastroscope was introduced into the esophagus, stomach, and duodenum. Examination was performed. The scope was removed. He was repositioned for colonoscopy. A digital rectal exam was performed and was found to be normal. The Olympus pediatric video colonoscope was introduced into the rectum and advanced to the cecum. The cecum was identified by transillumination, palpation, identification of ileocecal valve. Examination was performed. The scope was removed. He tolerated both procedures well, returned to recovery in stable condition. FINDINGS: Upper endoscopy, esophagus. The esophagus showed an irregular EG junction. This was biopsied. Stomach: The stomach showed no evidence of masses, ulcers, or polyps. Duodenum: The bulb and 2nd portion were normal. Colonoscopy: The terminal ileum was normal. The visualized colonic mucosa was normal. The quality of prep was good. No polyps were identified. Retroflexed examination was normal. There were small internal hemorrhoids. IMPRESSION: Normal colonoscopy, Ramirez esophagus. RECOMMENDATIONS: 1. Follow up with the biopsy results. 2. Repeat colonoscopy is recommended in 10 years for average-risk individuals. MD GOLDY Cantu/SHRUTHIL / [id number]
== END 2024-07-08 09:27 | disposition home or self-care (01) ==
PROVIDERS: PCP Internal Medicine; Visit Provider Internal Medicine Gastroenterology
PROC: (CPT 43239; principal; 2024-07-08 07:30)
DX: K22.70 Barrett's esophagus without dysplasia (principal); K22.89 Other specified disease of esophagus; K21.9 Gastro-esophageal reflux disease without esophagitis; Z12.11 Encounter for screening for malignant neoplasm of colon; K64.8 Other hemorrhoids; Z80.0 Family history of malignant neoplasm of digestive organs; E78.5 Hyperlipidemia, unspecified; I48.92 Unspecified atrial flutter; Z79.02 Long term (current) use of antithrombotics/antiplatelets; Z79.899 Other long term (current) drug therapy
CPT/HCPCS: 43239; G0105; 88305; 88313; J2704

== ENCOUNTER 2024-11-03 08:34 | Outpatient (REF) | payer MEDICARE, OTHER, SELFPAY ==
--- NOTE | ~2024-11-03 | US_ITS ---
CLINICAL HISTORY: GALL BLADDER POLYP US abdomen limited Comparison: None Findings: The visualized pancreas is normal. The aorta and inferior vena cava are normal caliber. The liver is normal in size and questionably coarsened in echotexture. 3.4 cm benign-appearing cyst noted. There is no intrahepatic bile duct dilatation. The common duct is 2 mm in diameter. The gallbladder demonstrates a 2 mm polyp. There is no sonographic Harley sign. The main portal vein is antegrade. The right kidney is 11.2 cm in length. No ascites. IMPRESSION: 2 mm polyp noted within the gallbladder, benign. No further follow-up. Possible minimal hepatic steatosis. This document has been electronically signed by: Cordell Webber MD on 11/04/2024 12:58:31
== END 2024-11-03 08:35 | disposition home or self-care (01) ==
LOC: HO.US 08:34
PROVIDERS: PCP Internal Medicine; Visit Provider Internal Medicine
DX: K82.4 Cholesterolosis of gallbladder (principal)
CPT/HCPCS: 76705

== ENCOUNTER → 2024-11-03 08:38 | Outpatient (BNV) | payer MEDICARE, OTHER, SELFPAY | PROVIDERS: PCP Internal Medicine; Visit Provider Radiology Vascular & Interventional Radiology | DX: K82.4 Cholesterolosis of gallbladder (principal) | CPT/HCPCS: 76705 ==

== ENCOUNTER 2024-11-18 06:41 | Outpatient (REF) | payer MEDICARE, OTHER, SELFPAY ==
--- OUTSIDE RECORDS SUMMARY | 2024-11-18 06:43 | XMS_ITS ---
Author Organization Johnnie Hawk MD Address [address] [place] [phone] Care Team Providers Care Dumper Bulk System Name Role Phone Johnnie Hawk Primary Care Provider Allergies Allergen (clinical drug ingredient) Drug/Non Drug Allergy documented on EMR Reaction Allergy Type Onset Date Status codeine codeine (uncoded) hallucinations Allergy Active REASON FOR VISIT balance off 2-3 weeks Medications Medication SIG (Take, Route, Frequency, Duration) Notes Start Date End Date Status Omeprazole 20 MG 1 capsule 30 minutes before morning meal Orally twice a day Active Atorvastatin Calcium 20 MG 1 tablet Oral ly Once a day Active Vital Signs Blood pressure systolic 144 mm Hg 10/17/20 24 Blood pressure diastolic 68 mm Hg 024 Height 71 in 10/17/2024 Weight 169 lbs 10/17/2024 BMI 23.57 kg/m2 10/17/2024 Encounters Encounter Location Date Provider Diagnosis Johnnie Hawk MD [address] [place] [phone] 10/17/2024 Johnnie Hawk Light-headed feeling R42 Assessments Encounter Date Diagnosis (ICD Code) Assessment Notes Treatment Notes Treatment Clinical Notes Section Notes 10/17/2024 Light-headed feeling (ICD-10 - R42) order faxed to [facility] dept Plan Of Treatment Treatment Notes Assessment Notes Light-headed feeling order faxed to [facility] dept Pending Test Test Name Order Date EEG awake and asleep 10/17/2024 Next Appt Details Follow Up: 4 Weeks, Reason: Provider Name:Johnnie Youngblood evon, 01/01/2025 07:45:00 AM, [address], [address], [place], [place], [phone], Provider Name:Johnnie Youngblood evon, 01/08/2025 09:00:00 AM, [address], [address], [place], [place], [phone], Provider Name:Johnnie Youngblood evon, 05/28/2025 07:15:00 AM, [address], [address], [place], [phone], Provider Name:Johnnie Youngblood evon, 06/04/2025 09:30:00 AM, [address], [address], [place], [phone], Progress Notes * Asher MONACO WDOB:[birth year] (69 yo M)Acc No.[id number]:10/17/2024 Progress Notes Patient:?Asher Monaco W Provider:?Johnnie Hawk MD :1955???Age:69 Y???Sex:Male Jaret e:10/17/2024 Address:[address] [place], [place] [phone] Subjective: * Chief Complaints: * ???Balance off 2-3 weeks * HPI: ???Symptom(s):? patient is a 69 yo male here with complaint his balance has been off for 2-3 weeks, the balance started to get better and now is back and not as bad/has had 4 or 5 bouts of a justine second of flash of light. when doing stretching. blood pressure is fine. balance is off for a couple weeks. in the morning his balance is off. * ROS:?General/Constitutional:?Denies?Chills.?Denies?Fatigue.?Denies?Fever.?Denies?Headache.?ENT:?Patient denies?decreased sense of smell , any loss of taste , sore throat.?Denies?Sore throat.?Respiratory:?Denies?Cough.?Denies?Shortness of breath at rest.?Denies?Shortness of breath with exertion.?Gastrointestinal:?Denies?Diarrhea.?Denies?Nausea.?Musculoskeletal:?Patient denies?muscle aches.?Peripheral Vascular:?Patient denies?red and blue toes.?Neurologic:?Admits?Balance difficulty.?Denies?Difficulty speaking.?Denies?Fainting.?Denies?Gait abnormality.?Denies?Headache.? * Medical History:? * Surgical History:? * Hospitalization/Major Diagno stic Procedure:? * Medications:?TakingOmeprazol e 20 MG Capsule Delayed Release 1 capsule 30 minutes before morning meal Orally twice a dayAtorvastatin Calcium 20 MG Tablet 1 tablet Orally Once a dayMedication List reviewed and reconciled with the patientTaking Omeprazole 20 MG Capsule Delayed Release 1 capsule 30 minutes before morning meal Orally twice a dayTaking Atorvastatin Calcium 20 MG Tablet 1 tablet Orally Once a dayMedication List reviewed and reconciled with the patient * Allergies:?codeine: hallucin ationsyes[Allergies Verified] Objective: * Vitals:?Ht: 71, Wt:169, BMI: 23.57, BP:144/68. * Examination: ???General Examination: ?GENERAL APPEARANCE:?well developed, well nourished.?HEAD:?normocephalic.?SKIN:?good turgor.?HEART:?regular rate and rhythm , no murmurs, rubs, gallops.?LUNGS:?no wheezes, rales, rhonchi , good air movement , clear to auscultation bilaterally.? Assessment: * Assessment: 1.?Light-headed feeling - R4 2 (Primary)? Plan: * Treatment: * Procedure Codes:? * Follow Up:?4 Weeks * * Sign off status: Completed true * Provider:?Johnnie Hawk MD Date:?12/18/2023 Generated for Robert douglas/Julia/Janeitting on:?11/18/2024 06:43 AM EST History and Physical Notes * HPI (History of Present Illness) Category Sub-Category Detail Notes Category Not es Symptom(s) patient is a 69 yo male here with complaint his balance has been off for 2-3 weeks, the balance started to get better and now is back and not as bad/has had 4 or 5 bouts of a justine second of flash of light. when doing stretching. blood pressure is fine. balance is off for a couple weeks. in the morning his balance is off Examination Category Sub-Category Detail Notes Category Not es General Examination GENERAL APPEARANCE: well developed , well nourished HEAD: normocephalic HEART: regular rate and rhy thm , no murmurs, rubs, gallops LUNGS: no wheezes, rales, r honchi , good air movement , clear to auscultation bilaterally SKIN: good turgor
--- OUTSIDE RECORDS SUMMARY | 2024-11-18 06:43 | XMS_ITS ---
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
--- OUTSIDE RECORDS SUMMARY | 2024-11-18 06:44 | XMS_ITS ---
Author Organization [facility] Address [address] [place] [phone] Care Team Providers Care College President Name Role Phone Carine SEVILLA, Johnnie Primary Care Provider Bruno Jaimes Jr, Kevin Unavailable ALLERGIES Allergen (clinical drug ingredient) Drug/Non Drug Allergy documented on EMR Reaction Allergy Type Onset Date Status Seasonale Unknown Drug Allergy Active Codeine Phosphate Unknown Drug Allergy Active REASON FOR VISIT Patient presents today for gerd MEDICATIONS Medication SIG (Take, Route, Frequency, Duration) Notes Start Date End Date Status MiraLax (colon prep) 17 GM/SCOOP mixed with Gatorade or Crystal Light Orally begin at 5:00 p.m. the day before the procedure for 1 day 01/30/2024 Active Atorvastatin Calcium 20 MG 1 tablet Oral ly Once a day for 30 day(s) Active Metamucil Clear & Natural Active Omeprazole 20 MG 1 twice daily for 90 days Active SOCIAL HISTORY Tobacco Use: Social History Observation Description Date Details (start date - stop date) Never Smoker NA - NA Sex Assigned At : Social History Observation Description Sex Assigned At Unknown Tobacco Use/Smoking Question Answer Notes Patient is a nonsmoker Alcohol Screen Question Answer Notes Did you have a drink contain ing alcohol in the past year? Yes How often did you have a dri nk containing alcohol in the past year? Monthly or less (1 point) How many drinks did you have on a typical day when you were drinking in the past year? 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 [id number] VITAL SIGNS BMI 23.15 kg/m2 01/30/2024 Blood pressure systolic 000 mm Hg 01/30/20 24 Blood pressure diastolic 00 mm Hg 024 Height 71 in 01/30/2024 Temperature 98.2 degrees Fahrenheit 01/30/20 24 Weight 166 lbs 01/30/2024 Encounters Encounter Location Date Provider Diagnosis [facility] [address] [place] [address] 01/30/2024 Kevin Jaimes Jr Gastroesophageal reflux K21.9 ; Adenomatous polyp of colon, unspecified part of colon D12.6 and Ramirez's esophagus without dysplasia K22.70 ASSESSMENTS Encounter Date Diagnosis Assessment Notes Treatment Notes Treatment Clinical Notes 01/30/2024 Gastroesophageal ref lux (ICD-10 - K21.9) Endoscopy material was printed 01/30/2024 Adenomatous polyp of colon, unspecified part of colon (ICD-10 - D12.6) 01/30/2024 Ramirez's esophagus without dysplasia (ICD-10 - K22.70) PLAN OF TREATMENT Medication Medication Name Sig Start Date Stop Date Notes MiraLax (colon prep) 17 GM/SCOOP mixed with Gatorade or Crystal Light Orally begin at 5:00 p.m. the day before the procedure for 1 day 01/30/2024 Treatment Notes Assessment Notes Gastroesophageal reflux Endoscopy materi al was printed Future Test Test Name Order Date UPPER GI ENDOSCOPY 01/30/2024 COLONOSCOPY 01/30/2024 Next Appt Details Follow Up: prn, Reason: Progress Notes * Examination Category Sub-Category Detail Notes General Examination GENERAL APPEARANCE: in no ac juan distress HEAD: normocephalic EYES: sclera non-icteric NECK/THYROID: no lymphadenopathy HEART: S1, S2 normal, no mu rmurs CHEST: normal shape and exp ansion LUNGS: clear to auscultatio n bilaterally ABDOMEN: soft, nontender, non distended, bowel sounds present, no organomegaly SKIN: anicteric EXTREMITIES: no clubbing, cyanosi s, or edema PSYCH: cognitive function i ntact ORAL CAVITY: mucosa moist
--- OUTSIDE RECORDS SUMMARY | 2024-11-18 06:44 | XMS_ITS ---
Author Organization Johnnie Hakw MD Address [address] [place] [phone] Care Team Providers Care Bricklayer Sewer Name Role Phone Johnnie Hawk Primary Care Provider [phone] Allergies Allergen (clinical drug ingredient) Drug/Non Drug Allergy documented on EMR Reaction Allergy Type Onset Date Status codeine codeine (uncoded) hallucinations Allergy Active REASON FOR VISIT 4 week Medications Medication SIG (Take, Route, Frequency, Duration) Notes Start Date End Date Status Atorvastatin Calcium 20 MG 1 tablet Oral ly Once a day Active Omeprazole 20 MG 1 capsule 30 minutes before morning meal Orally twice a day Active Vital Signs Blood pressure systolic 112 mm Hg 11/14/19 25 Blood pressure diastolic 60 mm Hg 025 Height 71 in 11/14/2024 Weight 165 lbs 11/14/2024 BMI 23.01 kg/m2 11/14/2024 Encounters Encounter Location Date Provider Diagnosis Johnnie Hawk MD [address] [place] [phone] 11/14/2024 Johnnie Hawk Prediabetes R73.09 and Light-headed feeling R42 Assessments Encounter Date Diagnosis (ICD Code) Assessment Notes Treatment Notes Treatment Clinical Notes Section Notes 11/14/2024 Prediabetes (ICD-10 - R73.09) 11/14/2024 Light-headed feeling (ICD-10 - R42) awaiting eeg but is going away Plan Of Treatment Treatment Notes Assessment Notes Light-headed feeling awaiting eeg but is going away Pending Test Test Name Order Date Hemoglobin A1c 11/14/2024 Glucose, finger stick 11/14/2024 Next Appt Details Provider Name:Johnnie Youngblood ier, 01/01/2025 07:45:00 AM, [address], [address], [place], [phone], Provider Name:Johnnie Youngblood ier, 01/08/2025 09:00:00 AM, [address], [address], [place], [phone], Provider Name:Johnnie Youngblood ier, 05/28/2025 07:15:00 AM, [address], [address], [place], [phone], Provider Name:Johnnie Youngblood ier, 06/04/2025 09:30:00 AM, [address], [address], [place], [phone], Progress Notes * Asher MONACO WDOB:[birth year] (69 yo M)Acc No.[id number]:11/14/2024 Progress Notes Patient:?Asher MONACO W Provider:?Johnnie Hakw MD :1955???Age:69 Y???Sex:Male Jaret e:11/14/2024 Address:[address] [place], [place] [phone] Subjective: * Chief Complaints: * ???1. 4 week. * HPI: ???Symptom(s):?patient is a 69 yo male here for 4 week follow up visit, doing well at present. had norovirus for couple days.? the momentry weak speks lasting miliseconds have only happened once.has sensitive tail bone. doing a lot of driving. * ROS:?General/Constitutional:?Denies?Chills.?Denies?Fatigue.?Denies?Fever.?Denies?Headache.?ENT:?Patient denies?decreased sense of smell, any loss of taste, sore throat.?Denies?Sore throat.?Respiratory:?Denies?Cough.?Denies?Shortness of breath at rest.?Denies?Shortness of breath with exertion.?Gastrointestinal:?Denies?Diarrhea.?Denies?Nausea.?Musculoskeletal:?Patient denies?muscle aches.?Peripheral Vascular:?Patient denies?red and blue toes.? * Medical History:?colonoscopy 2010 due in 2015 discussed 2016; colonoscopy done 07/25/17 w/Dr. Jaimes - repeat 5 year: Colonoscopy 01/31/22, Colonoscopy 07/08/24 repeat 10y , 12/25/13, refuses flu vac, Cystoscopy 2014, Colonoscopy 02/10 repeat in one year. * Medications:?Taking Omeprazo le 20 MG Capsule Delayed Release 1 capsule 30 minutes before morning meal Orally twice a day , Taking Atorvastatin Calcium 20 MG Tablet 1 tablet Orally Once a day , Medication List reviewed and reconciled with the patient * Allergies:?Codeine: Hallucin ations. Objective: * Vitals:?Ht: 71, Wt: 165, BMI :23.01, BP:112/60, Wt-k.84. * Examination: ???General Examination: ?GENERAL APPEARANCE:?alert, well hydrated, in no distress.?HEAD:?normocephalic.?SKIN:?good turgor.?HEART:?no murmurs, rubs, gallops, regular rate and rhythm.?LUNGS:?no wheezes, rales, rhonchi, clear to auscultation bilaterally.? Assessment: * Assessment: 1.?Light-headed feeling - R4 2 (Primary)???2.?Prediabetes - R73.09??? Plan: * Treatment: 2.?Prediabetes?LAB: Hemoglobin A1c ?LAB: Glucose, finger stick * Procedure Codes:?99137 ASSAY , GLUCOSE, BLOOD QUANT, Modifiers: QW , 61549 GLYCATED HEMOGLOBIN TEST, Modifiers: QW * * The named appointment provid er may or may not be the originator of this progress note, and it is not deemed complete until electronically signed by the appointment provider. Sign off status: Pending * Provider:?Johnnie Hawk MD Date:?0 11/14/2024 Generated for Robert douglas/Julia/Janeitting on:?11/18/2024 06:43 AM EST History and Physical Notes * HPI (History of Present Illness) Category Sub-Category Detail Notes Category Not es Symptom(s) patient is a 69 yo male here for 4 week follow up visit, doing well at present. had norovirus for couple days. the momentry weak speks lasting miliseconds have only happened once.has sensitive tail bone. doing a lot of driving Examination Category Sub-Category Detail Notes Category Not es General Examination GENERAL APPEARANCE: alert, w ell hydrated, in no distress HEAD: normocephalic HEART: no murmurs, rubs, ga llops, regular rate and rhythm LUNGS: no wheezes, rales, r honchi, clear to auscultation bilaterally SKIN: good turgor
--- OUTSIDE RECORDS SUMMARY | 2024-11-18 06:44 | XMS_ITS ---
Author Organization Johnnie Hawk MD Address [address] [place] [address] [place] [phone] Care Team Providers Care Insurance Examining Clerk Name Role Phone Johnnie Hawk Primary Care Provider Encounters Encounter Location Date Provider Diagnosis Johnnie Hawk MD [address] [place] [address] [place] [phone] 11/13/2024 Johnnie Hawk Plan Of Treatment Next Appt Details Provider Name:Johnnie barnard, 01/01/2025 07:45:00 AM, [address] [place] [address], [address], [phone], Provider Name:Johnnie barnard, 01/08/2025 09:00:00 AM, [address] [place] [address], [address], [phone], Provider Name:Johnnie barnard, 05/28/2025 07:15:00 AM, [address] [place] [address], [address], [phone], Provider Name:Johnnie barnard, 06/04/2025 09:30:00 AM, [address] [place] [address], [address], [phone], Progress Notes * Asher MONACO WDOB:[birth year] (69 yo M)Acc No.[id number]:11/13/2024 Patient:?Asher MONACO :1955???Age:69 Y???Sex:Male Address:[address] [place] [address], [place] [id number] * true * Date:? Generated for Robert douglas/Julia/Fernsmitting on:?11/18/2024 06:43 AM EST
--- OUTSIDE RECORDS SUMMARY | 2024-11-18 06:44 | XMS_ITS ---
Author Organization [facility] Address [address] [place] [address] Care Team Providers Care Dry Cure Worker Name Role Phone Johnnie Hawk MD Primary Care Provider Bruno Jaimes Jr, Kevin Aparicio REASON FOR VISIT pathology/ waiting on pt call back Encounters Encounter Location Date Provider Diagnosis [facility] [address] [place] [address] 07/10/2024 Kevin Jaimes Jr PLAN OF TREATMENT No Information
--- NOTE | 2024-11-18 06:46 | EEG_ITS ---
FINDINGS: Waking background activity consists of a well-defined low voltage posterior 10 Hz alpha frequency intermixed with low voltage fast frequencies and muscle artifacts anteriorly. Photic stimulation is without activation. Hyperventilation was omitted. No sleep stages are identified. No focal, lateralizing, or paroxysmal discharges were seen. IMPRESSION: This waking EEG is within normal limits. MD ORQUIDEA Carter/INGRID / [phone]
== END 2024-11-18 06:42 | disposition home or self-care (01) ==
LOC: HO.NEURO 06:41
PROVIDERS: PCP Internal Medicine; Visit Provider Internal Medicine
DX: R42 Dizziness and giddiness (principal)
CPT/HCPCS: 95819

== ENCOUNTER 2025-01-01 10:05 | Outpatient (REF) | payer MEDICARE, OTHER, SELFPAY ==
[2025-01-01 10:50] LABS: Estimated Average Glucose 108 mg/dL; Hemoglobin A1c % 5.4 % (<6.0); Total Hemoglobin (HGBA1C) 4006.1809 umol/L
[2025-01-01 10:54] LABS: Alanine Aminotransferase 33 U/L (0-40); Alkaline Phosphatase 76 U/L (39-117); Aspartate Amino Transferase 30 U/L (5-37); Bilirubin Direct 0.4 mg/dL (0.0-0.5); Bilirubin Total 1.1 mg/dL (0.0-1.0); Cholesterol 129 mg/dL (<200); Glucose Fasting 98 mg/dL (60-99); HDL Cholesterol 58 mg/dL (>40); LDL Cholesterol Calculated 65 mg/dL (<100); Total Protein 6.4 g/dL (6.5-8.0); Triglycerides 32 mg/dL (<150)
--- OUTSIDE RECORDS SUMMARY | 2025-01-01 12:30 | XMS_ITS ---
Author Organization Johnnie Hawk MD Address [address] [place] [phone] Care Team Providers Care Maintenance Millwright Name Role Phone Johnnie Hawk Primary Care Provider Encounters Encounter Location Date Provider Diagnosis Johnnie Hawk MD [address] [place] [address] [place] [phone] 11/13/2024 Johnnie Hawk Plan Of Treatment Next Appt Details Provider Name:Johnnie Youngblood ier, 01/08/2025 09:00:00 AM, [address] [place] [address], [address] [place] [address], [phone], Provider Name:Johnnie Youngblood ier, 05/28/2025 07:15:00 AM, [address] [place] [address], [address], [phone], Provider Name:Johnnie Youngblood ier, 06/04/2025 09:30:00 AM, [address] [place] [address], [address], [phone], Progress Notes * Asher MONACO WDOB:[birth year] (69 yo M)Acc No.[id number]:11/13/2024 Patient:?Asher MONACO :1955???Age:69 Y???Sex:Male Address:[address] [place] [phone] * true * Date:? Generated for Robert douglas/Julia/Janeitting on:?01/01/2025 12:30 PM EDT
--- OUTSIDE RECORDS SUMMARY | 2025-01-01 12:30 | XMS_ITS ---
Author Organization [facility] Address [address] [place] [phone] Care Team Providers Care Historic Interpreter Name Role Phone Johnnie Hawk MD Primary Care Provider Bruno Jaimes Jr, Kevin Aparicio [phone] REASON FOR VISIT pathology/ waiting on pt call back Encounters Encounter Location Date Provider Diagnosis [facility] [address] [place] [phone] 07/10/2024 Kevin Jaimes Jr Plan Of Treatment No Information Progress Notes * TAHIR MONACO WDOB:[birth year] (68 yo M)Acc No.[id number]:07/10/2024 Patient:?TAHIR MONACO :1955???Age:68 Y???Sex:Male Address:[address] [place] [phone] * true * Date:? Generated for Rogelioi misael/Julia/eTransmitting on:?01/01/2025 12:30 PM EDT
--- OUTSIDE RECORDS SUMMARY | 2025-01-01 12:30 | XMS_ITS ---
Author Organization [facility] Address [address] [place] [address] Care Team Providers Care Electrical Power Station Technician Name Role Phone Carine SEVILLA, Johnnie Primary Care Provider Bruno Jaimes Jr, Kevin Unavailable [phone] Allergies Allergen (clinical drug ingredient) Drug/Non Drug Allergy documented on EMR Reaction Allergy Type Onset Date Status Seasonale Unknown Drug Allergy Active Codeine Phosphate Unknown Drug Allergy Active REASON FOR VISIT Patient presents today for gerd Medications Medication SIG (Take, Route, Frequency, Duration) [...] 1 twice daily for 90 days Active Social History Tobacco Use: Social History Observation Description Date Details (start date - stop date) Never Smoker NA - NA Tobacco Use/Smoking Question Answer Notes Patient is [...] drinks (0 point) Points 1 Interpretation Negative Problems Problem Type SNOMED Code ICD Code Onset Dates Problem Status W/U Status Risk Notes Problem 520117699 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 Vital Signs Temperature 98.2 degrees Fahrenheit 01/30/20 24 Blood pressure systolic 000 mm Hg 01/30/20 24 Blood pressure diastolic 00 mm Hg 024 Height 71 in 01/30/2024 Weight 166 lbs 01/30/2024 BMI 23.15 kg/m2 01/30/2024 Encounters Encounter Location Date Provider Diagnosis [facility] [address] [place] [address] 01/30/2024 Kevin Jaimes Jr Gastroesophageal reflux K21.9 ; Adenomatous polyp of colon, unspecified part of colon D12.6 and Ramirez's esophagus without dysplasia K22.70 Assessments Encounter Date Diagnosis (ICD Code) Assessment Notes Treatment Notes Treatment Clinical Notes Section Notes 01/30/2024 Gastroesophageal reflux (ICD-10 - K21.9) Endoscopy material was printed We discussed gastroesophageal reflux disease and Ramirez's esophagus today. We discussed endoscopy and colonoscopy. He understands risks and benefits and agrees to proceed. 01/30/2024 Adenomatous polyp of colon, unspecified part of colon (ICD-10 - D12.6) We discussed gastroesophageal reflux disease and Ramirez's esophagus today. We discussed endoscopy and colonoscopy. He understands risks and benefits and agrees to proceed. 01/30/2024 Ramirez's esophagus without dysplasia (ICD-10 - K22.70) We discussed gastroesophageal reflux disease and Ramirez's esophagus today. We discussed endoscopy and colonoscopy. He understands risks and benefits and agrees to proceed. Plan Of Treatment Medication Medication Name Sig Start Date Stop [...] Follow Up: prn, Reason: Progress Notes * TAHIR MONACO WDOB:[birth year] (68 yo M)Acc No.[id number]:01/30/2024 Progress Notes Patient:?TAHIR MONACO W Provider:?Kevin Jaimes MD :1955???Age:68 Y???Sex:Male Jaret e:01/30/2024 Address:[address] [place] [address] CAROLINA DUKES [id number] Pcp:Johnnie Hawk MD Subjective: * Chief Complaints: * ???1. Patient presents today for gerd. * HPI: ???New symptom(s):? Tahir returns today for followup of Ramirez's esophagus and colon cancer screening. Since we saw him last year, he's been doing well. He uses omeprazole on a b.i.d. basis to control his reflux symptoms. He has no dysphagia, hematemesis, or melena. Weight and appetite have been stable. ?He's had some weight loss of about 5-8 pounds in the last 6 months. He thinks this is due to diet. He has no abdominal or rectal pain. He is due for followup endoscopy and colonoscopy. * ROS:?General/Constitutional:?Change in appetite?denies.?Fatigue?denies.?ENT:?Patient denies?difficulty swallowing.?Respiratory:?Patient denies?shortness of breath.?Cardiovascular:?Patient denies?chest pain.?Gastrointestinal:?Comments?See HPI for details.?Genitourinary:?Difficulty urinating?denies.?Incontinence?denies.?Musculoskeletal:?Patient denies?muscle aches.?Skin:?Patient denies?pruritis.?Neurologic:?Patient denies?low back pain.?Psychiatric:?Patient denies?mental or physical abuse.? * Medical History:?Hyperlipide ranulfo, Atrial flutter, status post ablation, Ramirez's esophagus, EGD 01/31/22, no dysplasia, two-year followup, Colonoscopy , multiple adenomas, two-year followup, Atherosclerotic cardiovascular disease. * Surgical History:?appendecto my , Atrial flutter ablation 2020. * Family History:?Father: dece ased 94 yrs, diagnosed with Colon cancer.?Mother: 94 yrs.? No family history of colon cancer or liver cancer. Patient has had colon polyps but they were benign. * Social History:?Tobacco Use:?Tobacco Use/Smoking?Patient is a?nonsmoker.?Drugs/Alcohol:?Alcohol Screen?Did you have a drink containing alcohol in the past year??Yes,?How often did you have a drink containing alcohol in the past year??Monthly or less (1 point), How many drinks did you have on a typical day when you were drinking in the past year??1 or 2 drinks (0 point),?Points?1,?Interpretation?Negative.?Miscellaneous:?Marital status: . Occupation: retired. * Medications:?Taking Metamuci l Clear & Natural , Taking Atorvastatin Calcium 20 MG Tablet 1 tablet Orally Once a day, Taking Omeprazole 20 MG Capsule Delayed Release 1 twice daily, Medication List reviewed and reconciled with the patient * Allergies:?Codeine Phosphate , Seasonale. Objective: * Vitals:?Wt: 166 lbs, Ht: 71 in, BMI:23.15 Index, BP: 000/00 mm Hg, Temp: 98.2. * Examination: ???General Examination: ?GENERAL APPEARANCE:?in no acute distress.?HEAD:?normocephalic.?EYES:?sclera non-icteric.?ORAL CAVITY:?mucosa moist.?NECK/THYROID:?no lymphadenopathy.?SKIN:?anicteric.?HEART:?S1, S2 normal, no murmurs.?LUNGS:?clear to auscultation bilaterally.?CHEST:?normal shape and expansion.?ABDOMEN:?soft, nontender, nondistended, bowel sounds present, no organomegaly .?EXTREMITIES:?no clubbing, cyanosis, or edema.?PSYCH:?cognitive function intact.? Assessment: * Assessment: 1.?Gastroesophageal reflux - K21.9 (Primary)?2.?Adenomatous polyp of colon, unspecified part of colon - D12.6?3.?Ramirez's esophagus without dysplasia - K22.70? We discussed gastroesophagea l reflux disease and Ramirez's esophagus today. We discussed endoscopy and colonoscopy. He understands risks and benefits and agrees to proceed. Plan: * Treatment: Notes: Endoscopy material was printed??2.?Adenomatous polyp of colon, unspecified part of colon? Start MiraLax (colon prep) Powder, 17 GM/SCOOP, mixed with Gatorade or Crystal Light, Orally, beginat 5:00 p.m. the day before the procedure, 1 day, 8.3 Ounce, Refills 0.?Procedure: COLONOSCOPY (Ordered for 01/30/2024)* Scheduled at [facility] on at 7:30 a.m. * Procedure Codes:?3017F COLOR ECTAL CA SCREEN DOC REV, G9903 Pt scrn tbco id as non user, G9745 DOC RSN FOR NOT SCREEN/REC F/U HBP * Follow Up:?prn * * Sign off status: Completed true * Provider:?Kevin Jaimes MD Date:?0 01/30/2024 Generated for Rogelioi misael/Julia/eTransmitting on:?01/01/2025 12:30 PM EDT History and Physical Notes * HPI (History of Present Illness) Category Sub-Category Detail Notes Category Not es New symptom(s) Tahir returns today for followup of Ramirez's esophagus and colon cancer screening. Since we saw him last year, he's been doing well. He uses omeprazole on a b.i.d. basis to control his reflux symptoms. He has no dysphagia, hematemesis, or melena. Weight and appetite have been stable. He's had some weight loss of about 5-8 pounds in the last 6 months. He thinks this is due to diet. He has no abdominal or rectal pain. He is due for followup endoscopy and colonoscopy. Examination Category Sub-Category Detail Notes Category Not es General Examination GENERAL APPEARANCE: in no acute di stress HEAD: normocephalic EYES: sclera non-icteric NECK/THYROID: no lymphadenopathy HEART: S1, S2 normal, no mu rmurs CHEST: normal shape and exp ansion LUNGS: clear to auscultatio n bilaterally ABDOMEN: soft, nontender, non distended, bowel sounds present, no organomegaly SKIN: anicteric EXTREMITIES: no clubbing, cyanosi s, or edema PSYCH: cognitive function i ntact ORAL CAVITY: mucosa moist
--- OUTSIDE RECORDS SUMMARY | 2025-01-01 12:30 | XMS_ITS ---
Author Organization [facility] Address [address] [place] [address] Care Team Providers Care Tire Care Manager Name Role Phone Johnnie Hawk MD Primary Care Provider Kevin Benavidez Jr [phone] REASON FOR VISIT barretts, screening colon Problems Problem Type SNOMED Code ICD Code Onset Dates Problem Status W/U Status Risk Notes Problem Ramirez's esophagus (618350038) Ramirez''s esophagus without dysplasia (K22.70) Active confirmed Encounters Encounter Location Date Provider Diagnosis [facility] [place] [address] [place] [phone] 07/08/2024 Kevin Jaimes Jr Colon cancer screening Z12.11 and Ramirez''s esophagus without dysplasia K22.70 Assessments Encounter Date Diagnosis (ICD Code) Assessment Notes Treatment Notes Treatment Clinical Notes Section Notes 07/08/2024 Colon cancer screening (ICD-10 - Z12.11) 07/08/2024 Ramirez''s esophagus without dysplasia (ICD-10 - K22.70) Plan Of Treatment No Information Progress Notes * TAHIR MONACO WDOB:[birth year] (69 yo M)Acc No.[id number]:07/08/2024 EGD and COL/MAC Patient:?TAHIR MONACO Provider:?Kevin Jaimes MD :1955???Age:68 Y???Sex:Male Jaret e:07/08/2024 Address:[address] [place] [phone] Pcp:Johnnie Hawk MD Subjective: * Chief Complaints: * ???1. Barretts, screening co rica. * Medical History:? Objective: * Vitals:? Assessment: * Assessment: 1.?Colon cancer screening - Z12.11 (Primary)???2.?Ramirez''s esophagus without dysplasia - K22.70??? Plan: * Treatment: * Procedure Codes:?79401 DIAGN OSTIC COLONOSCOPY, 50153 UPPER GI ENDOSCOPY, BIOPSY * * The named appointment provid er may or may not be the originator of this progress note, and it is not deemed complete until electronically signed by the appointment provider. Sign off status: Pending * Provider:?Kevin Jaimes MD Date:?0 07/08/2024 Generated for Robert douglas/Julia/Fernsmitting on:?01/01/2025 12:30 PM EDT
--- OUTSIDE RECORDS SUMMARY | 2025-01-01 12:30 | XMS_ITS | Patient Health Record ---
Author Organization [facility] Address [address] [place] [address] Care Team Providers Care Bank Worker Name Role Phone Carine SEVILLA, Johnnie Primary Care Provider Kevin Benavidez Jr [phone] Allergies Allergen (clinical drug ingredient) Drug/Non Drug Allergy documented on EMR Reaction Allergy Type Onset Date Status Seasonale Unknown Drug Allergy Active Codeine Phosphate Unknown Drug Allergy Active Results Component Value Reference Range Notes Pathology Reviewed date:07/10/2024 11:21:30 AM Interpretation: Performing Lab:[facility], [address] [place] [phone] Notes/Report: Name: Tahir Monaco Age/Sex: 68/M : 1955 Unit#: [id number] Attend Dr: Kevin Jaimes MD Re07/08/24 Status : [facility] Location: [facility] [place] Disch: SPEC : [id number] REC STATUS: RUFINO MADRID NUM: [id number] CINTHYA: 07/08/24-[address]: Kevin Jaimes MD ENTERED: 07/08/24- SP TYPE: Surgical OTHR DR: Johnnie Hawk MD ORDERED: HE Stain/3, Gross Micro L4, Special st. 2, AB/PAS Diagnosis Gastroesophageal tahir ction, biopsy: Squamocolumnar junctional mucosa with mild chronic inflammation; negati ve for intestinal metaplasia and dysplasia. Clinical History Pre-Op Dx: GERD, scr eening, Ramirez's esophagus Post-Op Dx: Ramirez's esophagus Microscopic Description Microscopic sections reviewed. The special stain for AB/PAS is negative for intestinal metaplasia and fungal organisms. Material Received EG junction Gross Description Received in formalin labeled ?EG junction are 4 pieces of guzman-pink tissue measuring from 0.1-0.3 cm, all subm itted in cassette labeled A. FM Special stains order ed and performed: AB/PAS on A. Copies To: Johnnie Hawk MD [facility] [address] [place] [address] Drive [address] [place] [address] Kevin Jaimes MD [facility] [address] [place] [address] [address] [place] [address] Signed (si gnature on file) Nini Neves MD 07/09/24 1427 END OF REPORT Reason For Referral No Information Medications Medication SIG (Take, Route, Frequency, Duration) Notes Start Date End Date Status MiraLax (colon prep) 17 GM/SCOOP mixed with Gatorade or Crystal Light Orally begin at 5:00 p.m. the day before the procedure for 1 day 01/30/2024 Active Atorvastatin Calcium 20 MG 1 tablet Oral ly Once a day for 30 day(s) Active Metamucil Clear & Natural Active Omeprazole 20 MG 1 TWICE DAILY 90 DAY S for 90 Active Immunizations Vaccine Route Administration Date Status Comme nts Influenza Unknown 09/13/2021 Administered Influenza Unknown 09/12/2022 Administered Influenza Unknown 08/14/2023 Administered Social History Tobacco Use: Social History Observation [...] Problem Status W/U Status Risk Notes Problem 847756507 Colon cancer screening (Z12.11) Active confirmed Problem 82077614 Encounter for ot her preprocedural examination (Z01.818) Active confirmed Problem 719834375 Ramirez's esopha ligia without dysplasia (K22.70) Active confirmed Problem 847137628 Gastroesophageal reflux disease without esophagitis (K21.9) Active confirmed Problem Esophageal reflux finding (400077075) Gastroesophageal reflux (K21.9) Active confirmed Problem 242778820 Adenomatous poly p of colon, unspecified part of colon (D12.6) Active confirmed Problem Ramirez's esophagus (862094846) Ramirez''s esophagus without dysplasia (K22.70) Active confirmed Vital Signs Temperature 98.2 degrees Fahrenheit 01/30/2024 Blood pressure diastolic 00 mm Hg 01/30/2024 Height 71 in 01/30/2024 Blood pressure systolic 000 mm Hg 01/30/2024 Weight 166 lbs 01/30/2024 BMI 23.15 kg/m2 01/30/2024 Encounters Encounter Location Date Provider Diagnosis [facility] Out[facility] [address] [place], [place] [phone] 07/08/2024 Kevin Jaimes Jr Colon cancer screening Z12.11 and Ramirez''s esophagus without dysplasia K22.70 [facility] [address] [place] [phone] 01/30/2024 Kevin Jaimes Jr Gastroesophageal reflux K21.9 ; Adenomatous polyp of colon, unspecified part of colon D12.6 and Ramirez's esophagus without dysplasia K22.70 [facility] [address] [place] [phone] 07/10/2024 Kevin Jaimes Jr Assessments Encounter Date Diagnosis (ICD Code) Assessment Notes Treatment Notes Treatment Clinical Notes Section Notes 07/08/2024 Colon cancer screening (ICD-10 - Z12.11) 07/08/2024 Ramirez''s esophagus without dysplasia (ICD-10 - K22.70) 01/30/2024 Gastroesophageal reflux (ICD-10 - K21.9) Endoscopy [...] and agrees to proceed. Plan Of Treatment Future Test Test Name Order Date COLONOSCOPY 05/17/2017 UPPER GI ENDOSCOPY 01/04/2022 COLONOSCOPY 01/04/2022 UPPER GI ENDOSCOPY 01/30/2024 COLONOSCOPY 01/30/2024 Insurance Providers Payer Name Payer Address Payer Phone Subscriber Number Group Number Insured Name Patient Relationship to Insured Coverage Start Date Coverage End Date MEDICARE OF [place] [address] [place] [id number] TAHIR MONACO Self - patient is the insured [id number] ([employer]) [address] [place] [address] [id number] TAHIR MONACO Self - patient is the insured Medical (General) History Medical History History ICD Code Hyperlipidemia Atrial flutter, status post ablation Ramirez's esophagus, EGD 01/31/22, no dys plasia, two-year followup Colonoscopy , multiple adenomas, two-year followup Atherosclerotic cardiovascular disease Surgical History Surgery Date(Month/Year) appendectomy Atrial flutter ablation 2020
--- OUTSIDE RECORDS SUMMARY | 2025-01-01 12:30 | XMS_ITS ---
Author Organization Johnnie Hawk MD Address [address] [place] [phone] Care Team Providers Care Maintenance Craftsman Name Role Phone Johnnie Hawk Primary Care Provider [phone] Results Component Value Reference Range Notes Hemoglobin A1c (Not yet revi ewed by provider) Interpretation: Performing Lab:[facility], [address] [place] [phone] Notes/Report: Hemoglobin A1c % 5.4 <6.0 % Hemoglobin A1C Reference Range Adults: 4.8 - 6.0 % Non diabetic: < 6.0 % Goal: < 7.0 % Additional Action Suggested: > 8.0 % Note: Hemoglobin A1c results are invalid for patients with abnormal amounts of HbF. Blood transfusions may impact the HbA1c concentration in the patient sample. Estimated Average Glucose 108 eAG = Estimated average glucose which is %A1C expressed as average glucose, using the formula of the K7L-Elmxufc Average Glucose study (ADAG), Diabetes Care, Vol.31,#8, May. 2007 REASON FOR VISIT fasting lipids Encounters Encounter Location Date Provider Diagnosis Johnnie Hawk MD [address] [place] [phone] 01/01/2025 Johnnie Hawk Hypercholesterolemia E78.00 and Prediabetes R73.09 Assessments Encounter Date Diagnosis (ICD Code) Assessment Notes Treatment Notes Treatment Clinical Notes Section Notes 01/01/2025 Hypercholesterolemia (ICD-10 - E78.00) 01/01/2025 Prediabetes (ICD-10 - R73.09) Plan Of Treatment Pending Test Test Name Order Date Liver Panel 01/01/2025 Glucose Fasting 01/01/2025 Lipid Panel with Reflex 01/01/2025 Hemoglobin A1c 01/01/2025 Next Appt Details Provider Name:Johnnie Youngblood ier, 01/08/2025 09:00:00 AM, [address] [facility], [address], [place], [place], [phone], Provider Name:Johnnie Youngblood ier, 05/28/2025 07:15:00 AM, [address] [place] [address], [address], [place], [place], [phone], Provider Name:Johnnie Youngblood ier, 06/04/2025 09:30:00 AM, [address] [place] [address], Suite [facility], [place], [place], [phone], Progress Notes * Asher MONACO WDOB:[birth year] (69 yo M)Acc No.[id number]:01/01/2025 Progress Note Patient:?Asher MONACO W Provider:?Johnnie Hawk MD :1955???Age:69 Y???Sex:Male Jaret e:01/01/2025 Address:[address] [place], [place] [phone] Subjective: * Chief Complaints: * ???1. Fasting lipids. * Medical History:? Objective: * Vitals:? Assessment: * Assessment: 1.?Hypercholesterolemia - E7 8.00 (Primary)???2.?Prediabetes - R73.09??? Plan: * Treatment: 2.?Prediabetes?LAB: Liver Panel ?LAB: Glucose Fasting ?LAB: Lipid Panel with Reflex ?LAB: Hemoglobin A1c (Collection Date & Time - 01/01/2025 07:45 AM) * Procedure Codes:?36981 VENIP UNCT, ROUTINE* * * The named appointment provid er may or may not be the originator of this progress note, and it is not deemed complete until electronically signed by the appointment provider. Sign off status: Pending * Provider:?Johnnie Hawk MD Date:?0 01/01/2025 Generated for Robert douglas/Julia/Janeitting on:?01/01/2025 12:29 PM EDT
--- OUTSIDE RECORDS SUMMARY | 2025-01-01 12:31 | XMS_ITS ---
Author Organization Johnnie Hawk MD Address [address] [place] [phone] Care Team Providers Care Security Installation Sales Technician Name Role Phone Johnnie Hawk Primary Care [...] Johnnie Hawk MD [address] [place] [phone] 11/14/2024 Johnnie Hawk Prediabetes R73.09 and Light-headed [...] 09:00:00 AM, [address], [address], [place], [phone], Provider Name:Johnnie Youngblood ier, 05/28/2025 07:15:00 AM, [address], [address], [place], [phone], Provider Name:Johnnie Youngblood ier, 06/04/2025 09:30:00 AM, [address], [address], [place], [phone], Progress Notes * Asher MONACO WDOB:[birth year] (69 yo M)Acc No.[id number]:11/14/2024 Progress Notes Patient:?Asher MONACO W Provider:?Johnnie Hawk MD :1955???Age:69 Y???Sex:Male Jaret e:11/14/2024 Address:[address] [place] [address], [facility] Subjective: * Chief Complaints: * ???4 week * HPI: ???Symptom(s):?patient is a 69 yo [...] Vascular:?Patient denies?red and blue toes.? * Medical History:? * Surgical History:? * Hospitalization/Major Diagno stic Procedure:? * Medications:?TakingOmeprazol e 20 MG Capsule Delayed Release 1 capsule 30 minutes before morning meal Orally twice a day Atorvastatin Calcium 20 MG Tablet 1 tablet Orally Once a day Medication List reviewed and reconciled with the patientTaking Omeprazole 20 MG Capsule Delayed Release 1 capsule 30 minutes before morning meal Orally twice a day Taking Atorvastatin Calcium 20 MG Tablet 1 tablet Orally Once a day Medication List reviewed and reconciled with the patient * Allergies:?codeine: hallucin ationsyes[Allergies Verified] Objective: * Vitals:?Ht: 71, Wt: 165, BMI :23.01, BP:112/60, Wt-k.84. * Examination: ???General Examination: ?GENERAL APPEARANCE:?alert, well hydrated, in no distress.?HEAD:?normocephalic.?SKIN:?good turgor.?HEART:?no murmurs, rubs, gallops, regular rate and rhythm.?LUNGS:?no wheezes, rales, rhonchi, clear to auscultation bilaterally.? Assessment: * Assessment: 1.?Light-headed feeling - R4 2 (Primary)???2.?Prediabetes - R73.09??? Plan: * Treatment: 2.?Prediabetes?LAB: Hemoglobin A1c ?LAB: Glucose, finger stick * Procedure Codes:?55261 ASSAY , GLUCOSE, BLOOD QUANT, Modifiers: QW 41280 GLYCATED HEMOGLOBIN TEST, Modifiers: QW * * Sign off status: Completed true * Provider:?Johnnie Hawk MD Date:?0 11/14/2024 Generated for Robert douglas/Julia/Fernsmitting on:?01/01/2025 12:30 PM EDT History and Physical [...]
[2025-01-01 12:43] LABS: Reflex LDLD? No
== END 2025-01-01 10:06 | disposition home or self-care (01) ==
LOC: HO.LNP 10:05
PROVIDERS: Visit Provider Internal Medicine
DX: E78.00 Pure hypercholesterolemia, unspecified (principal); R73.09 Other abnormal glucose
CPT/HCPCS: 80061; 80076; 82947; 83036

== ENCOUNTER 2025-05-28 11:13 | Outpatient (REF) | payer MEDICARE, OTHER, SELFPAY ==
[2025-05-28 11:46] LABS: Hemoglobin A1C 154.8146 umol/L; Total Hemoglobin (HGBA1C) 4119.4854 umol/L
[2025-05-28 11:58] LABS: Alanine Aminotransferase 27 U/L (0-40); Albumin Level 4.3 g/dL (3.5-5.0); Alkaline Phosphatase 64 U/L (39-117); Aspartate Amino Transferase 30 U/L (5-37); Cholesterol 152 mg/dL (<200); HDL Cholesterol 57 mg/dL (>40); Total Protein 6.4 g/dL (6.5-8.0); Triglycerides 70 mg/dL (<150)
--- OUTSIDE RECORDS SUMMARY | 2025-05-28 12:02 | XMS_ITS | Clinical Summary ---
Author Organization [facility] Address [address] [place] [address] Phone Care Team Providers Care Registrar Nurses' Registry Name Role Phone Johnnie Hawk MD Primary Care Provider Allergies Active Allergy Reactions Criticality Noted Date Comments Codeine Hallucinations High 06/22/2024 Medications atorvastatin (LIPITOR) 20 MG tablet 1 tablet Orally Once a day Active omeprazole (PRILOSEC) 20 MG capsule 1 capsule 30 minutes before morning meal Orally twice a day Active Active Problems Problem Noted Date Diagnosed Date Allergic contact dermatitis due to plant 024 Social History Tobacco Use Types Packs/Day Years Used Date Smoking Tobacco: Never Smokeless Tobacco: Never Alcohol Use Standard Drinks/Week Comments Yes 0 (1 standard drink = 0.6 oz pur e alcohol) occ Education Answer Date Recorded Are you interested in more education? Not on johanny e 02/16/2023 Are you concerned about learning? Not on file 02/16/2023 No 02/16/2023 No 02/16/2023 Digital Access Answer Date Recorded No 03/20/2023 No 03/20/2023 Reliable internet access at home? Not on file 03/20/2023 Device with a working camera? Not on file Sex and Gender Information Value Date Recorded Sex Assigned at Not on file Legal Sex Male 9:06 AM EDT Gender Identity Not on file Sexual Orientation Not on file Last Filed Vital Signs Vital Sign Reading Time Taken Comments Blood Pressure 125/85 06/22/2024 9:42 AM EDT Pulse 98 06/22/2024 9:42 AM EDT Temperature 36.2 C (97.2 F) 06/22/2024 9:42 AM EDT Respiratory Rate 20 06/22/2024 9:42 AM EDT Oxygen Saturation 98% 06/22/2024 9:42 AM EDT Inhaled Oxygen Concentration - - Weight 72.6 kg (160 lb) 06/22/2024 9:42 AM EDT Height 180.3 cm (5' 11 ) 06/22/2024 9:42 AM EDT Body Mass Index 22.32 06/22/2024 9:42 AM EDT Plan of Treatment Health Maintenance Due Date Last Done Comments LIPID PANEL 1953 DEPRESSION SCREENING 1965 HEPATITIS C SCREENING 1971 COLOGUARD 1998 COLONOSCOPY 1998 COLORECTAL CANCER SCREENING 1998 FIT TEST 1998 FOBT 1998 SIGMOIDOSCOPY 1998 VIRTUAL COLONOSCOPY 1998 COVID-19 VACCINE ( season) 2024 10/20/2023, 08/22/2022, 02/07/2022, Additional history exists Adult Td,Tdap Booster 09/18/2027 09/18/2017 RSV VACCINE (1 - 1-dose 75+ series) 2028 SMOKING STATUS SCREENING (Once After 26 Yrs) Completed 03/08/2020 ZOSTER VACCINES Completed 05/11/2020, 12/23/2019 PNEUMOCOCCAL VACCINES (50+ years) Completed 08/15/2021, 06/07/2020 HEPATITIS A VACCINES Aged Out No long er eligible based on patient's age to complete this topic HIB VACCINES Aged Out No longer eligi ble based on patient's age to complete this topic MENINGOCOCCAL VACCINES (ACWY) Aged Out No longer eligible based on patient's age to complete this topic MENINGOCOCCAL VACCINES (B) Aged Out N o longer eligible based on patient's age to complete this topic Medical Devices Not on file Insurance MEDICARE PART A & B [employer] MEDICARE SUPPLEMENT MEDICARE PART A & B [employer] MEDICARE SUPPLEMENT MEDICARE PART A & B [facility] MEDICARE SUPPLEMENT MEDICARE PART A & B [employer] EXTENSION MEDICARE SUPPLEMENT MEDICARE PART A & [facility] EXTENSION MEDICARE SUPPLEMENT MEDICARE PART A & B [facility] EXTENSION MEDICARE SUPPLEMENT MEDICARE PART A & B [id number] [place] [address] EXTENSION MEDICARE SUPPLEMENT MEDICARE PART A & B Member Subscriber Plan / Payer ( fective 2018-Present) Name:Asher Monaco Member ID:[id number] Relation to Subscriber:Self Name:Asher Monaco Subscriber ID:[id number] Payer ID:[id number] Group ID:Not on file Type:Medicare Address: [facility] [employer] [facility] [address] [place] [phone] [place] [address] EXTENSION MEDICARE SUPPLEMENT [place] [id number] MEDICARE PART A & B [facility] [place] [id number] Care Teams Registrar Nurses' Registry Relationship Specialty Start Date End Date Johnnie Hawk MD [address] [place] [address] [place] [address] PCP - General Internal Medicine 03/08/20 Additional Source Comments The information contained in this document represents components of the legal health record. It is not the complete legal health record.[facility]
[2025-05-28 13:44] LABS: Reflex LDLD? No
== END 2025-05-28 11:14 | disposition home or self-care (01) ==
LOC: HO.LNP 11:13
PROVIDERS: Visit Provider Internal Medicine
DX: R73.09 Other abnormal glucose (principal); E78.00 Pure hypercholesterolemia, unspecified
CPT/HCPCS: 80061; 80076; 82947; 83036

== ENCOUNTER 2025-06-04 12:11 | Outpatient (REF) | payer MEDICARE, OTHER, SELFPAY ==
[2025-06-04 12:16] LABS: MANUAL DIFF FLAG NO
[2025-06-04 12:21] LABS: Hematocrit 45.1 % (42.0-52.0); Hemoglobin 15.4 g/dl (14.0-18.0); Imm Gran Abs Auto 0.02 X10*3/uL (0.00-0.03); Imm Gran Pct Auto 0.3 % (0.0-0.4); Lymphocytes Absolute Auto 1.9 X10*3/uL (1.2-4.9); Mean Corpuscular HGB Conc 34.1 g/dl (31.0-36.0); Mean Corpuscular Hemoglobin 29.4 pg (27.0-33.0); Mean Corpuscular Volume 86.1 fL (80.0-98.0); NRBC Abs Auto 0.000 X10*3/uL (0.0-0.012); NRBC Pct Auto 0.0 /100WBC (0.0-0.2); Platelet Count 220 X10*3/uL (160-400); Red Blood Count 5.24 X10*6/uL (4.60-5.80); White Blood Count 6.0 X10*3/uL (4.8-10.8)
[2025-06-04 12:24] LABS: Appearance Urine Clear; Glucose Urine UA Negative (Negative); PH 6.5 (5.0-9.0); Specific Gravity - Urine 1.010 (1.005-1.025)
--- OUTSIDE RECORDS SUMMARY | 2025-06-04 13:07 | XMS_ITS | Clinical Summary ---
Author Organization [facility] Address [address] [place] [address] Phone Care Team Providers Care Transfer Operator Name Role Phone Johnnie Hawk MD Primary [...] file Insurance MEDICARE PART A & B [employer] EXT[employer]ION MEDICARE SUPPLEMENT MEDICARE PART A & B [employer] EXTENSION MEDICARE SUPPLEMENT MEDICARE PART A & B [facility] MEDICARE SUPPLEMENT MEDICARE PART A & B [employer] EXTENSION MEDICARE SUPPLEMENT MEDICARE PART A & B [facility] EXTENSION MEDICARE SUPPLEMENT MEDICARE PART A & B [facility] EXTENSION MEDICARE SUPPLEMENT MEDICARE PART A & B [id number] [place] [address] EXTENSION MEDICARE SUPPLEMENT MEDICARE PART A & B [id number] [place] [address] EXTENSION MEDICARE SUPPLEMENT [place] [address] MEDICARE PART A & B [facility] [place] [phone] Care Teams Transfer Operator Relationship Specialty Start Date End Date Johnnie Hawk MD [address] [place] [address] [place] [address] PCP - General Internal Medicine 03/08/20 Additional Source Comments The information contained in this document represents components of the legal health record. It is not the complete legal health record.[facility]
== END 2025-06-04 12:12 | disposition home or self-care (01) ==
LOC: HO.LNP 12:11
PROVIDERS: Visit Provider Internal Medicine
DX: Z00.00 Encounter for general adult medical examination without abnormal findings (principal); R73.09 Other abnormal glucose
CPT/HCPCS: 81001; 82043; 82570; 85025

== ENCOUNTER 2025-09-02 10:34 | Outpatient (AMB) | payer MEDICARE, OTHER, SELFPAY ==
[2025-09-02 10:37] VITALS: BP 146/70; PULSE 69; BMI 23.4
--- NOTE | 2025-09-02 10:37 | A.OFFVIS_ITS ---
Vital Signs 09/02/25 10:37 Height 5 ft 11 in Weight 167 lb 8.821 oz BMI 23.4 BP 146/70 H Blood Pressure Location Lt brachial Position Sitting Pulse 69 Pulse Source Monitor Intake Visit Reasons: 2 year f/up Allergies codeine (CODEINE) Allergy (Severe, Verified 07/08/24 06:51) passed out Medication List - Last Reconciled 09/02/25 by Uriel Linder MD atorvastatin 20 mg PO BEDTIME omeprazole 20 mg PO BID 30 days HPI Comments Details: Asher returns for follow-up. To recall, in the past was seen regarding atrial flutter. After a couple of episodes, he underwent ablation of the same. No recurrence after that. Since last seen, he is actually doing quite good. Still very active with no limitations. He goes for regular walks and works around the house with no cardiac symptoms. [facility] Medical History Atherosclerotic cardiovascular disease Ramirez's esophagus Seasonal allergies Elevated cholesterol Typical atrial flutter Surgical History History of esophagogastroduodenoscopy (EGD) (2021) Hx of appendectomy H/O colonoscopy (2021) History of cardiac radiofrequency ablation (~2020) Family History Father No problems noted. Mother No problems noted. Social History Household Members: Spouse Housing: House Are you a primary adult daycare coordinator to a significant other at home: No Do you presently have visiting nurse or other home services: No Alcohol intake: former Patient Tobacco Use Status: Never used Tobacco Advance Directives Date on File: 07/21/22 service: No Current occupational status: retired Review of Systems Const Denies weakness ENT Denies dizziness Card Denies chest pain, Denies chest pain with activity, Denies syncope, Denies rapid heart rate, Denies pedal edema, Denies edema, Denies leg edema, Denies lightheadedness, Denies palpitations, Denies dyspnea, Denies dyspnea on exertion and Denies orthopnea Resp Denies cough, Denies dyspnea and Denies dyspnea on exertion GI Denies hematochezia and Denies change in stool character Musc Denies abnormal gait, Denies muscle cramps, Denies muscle weakness, Denies numbness, Denies radiating pain into limb and Denies tingling Neuro Denies abnormal gait, Denies dizziness, Denies syncope, Denies numbness, Denies tingling and Denies weakness Endo Denies palpitations Physical Exam Vital Signs: Last Vital Signs Pulse 69 09/02/25 10:37 BP 146/70 H 09/02/25 10:37 BMI result Body Mass Index 23.4 Const General: comfortable and no acute distress Orientation/consciousness: patient oriented x3 HEENT Other: Unremarkable Head: Yes normal to inspection Neck Neck: Yes normal visual inspection Chest Chest palpation & inspection: normal inspection of the chest Resp Auscultation: clear to auscultation bilaterally Cardio Palpation: normal PMI Heart sounds: S1 normal heart sound present, S2 normal heart sound present, no gallops, Murmur heart sound present systolic I/ and no rubs GI Palpation (GI): Soft to palpation Back/Spine/Pelvis Other: unremarkable Skin General skin exam: no rashes or lesions noted Neuro General: patient oriented x3 Extrem General: Yes normal to inspection Psych Mental Status: mental status grossly normal Office Procedures EKG Details: EKG with underlying sinus rhythm at 69/Min; leftward axis; right bundle-branch block pattern; [place] [address]-[id number], Complete Assessment & Plan Assessment & Plan (1) Atherosclerotic cardiovascular disease: Code(s): I25.10 - Atherosclerotic heart disease of [place] coronary artery without angina pectoris Category: Medical Plan: Coronary CT in the past with nonobstructive coronary disease but nothing of significance. Ascending aorta top normal size at sinus of Valsalva. Echocardiogram unremarkable. Stress perfusion imaging study which was unremarkable. He remains on statins. (2) Typical atrial flutter: Comment: s/p ablation, no anticoag Code(s): I48.3 - Typical atrial flutter Category: Medical Plan: Status post ablation. No recurrences. (3) Bifascicular block: Code(s): I45.2 - Bifascicular block Category: Medical Plan: We discussed about this today. Can be followed by EKGs periodically. Plan He would prefer to come back for an appointment in about 2 years or so. In the interim, he will contact us with any concerns. Discussion Notes During the visit, we discussed the patient's current management of arrhythmia, including the importance of regular EKG monitoring to track the condition's stability. We also reviewed his GERD management, emphasizing the gradual reduction of omeprazole dosage and dietary changes to manage symptoms. For hyperlipidemia, we confirmed the continuation of atorvastatin and the need for regular lipid profile checks. Patient was informed and verbally consented to the use of an ambient scribe for clinic note documentation during this visit. Patient Instructions: - Regular EKG monitoring to assess arrhythmia stability. - Maintain current physical activity level. - Continue Atorvastatin daily and monitor cholesterol levels regularly. Coding Level of Care Code Est Pt Level 4 (66406) Complex EM visit Add On G2211 Diagnoses Atherosclerotic cardiovascular disease I25.10 Typical atrial flutter I48.3 Bifascicular block I45.2 CPT Codes EKG - CPT: 44870-[id number], Complete ([id number])
--- OUTSIDE RECORDS SUMMARY | 2025-09-02 12:40 | XMS_ITS | Clinical Summary ---
Author Organization [facility] Address [address] [place] [phone] Phone Care Team Providers Care Pumper Head Name Role Phone Johnnie Hawk MD Primary [...] FOBT 1998 SIGMOIDOSCOPY 1998 VIRTUAL COLONOSCOPY 1998 INFLUENZA VACCINE (#1) 2025 , 07/28/2022, 07/01/2021, Additional history exists COVID-19 VACCINE (2024- season) 2025 10/20/2023, 08/22/2022, 02/07/2022, Additional history exists Adult [...] on patient's age to complete this topic IPV VACCINES Aged Out No longer eligi ble based on patient's age to complete this topic MENINGOCOCCAL VACCINES (ACWY) Aged Out No longer eligible based on patient's age to complete this topic MENINGOCOCCAL VACCINES (B) Aged Out N o longer eligible based on patient's age to complete this topic Medical Devices Not on file Insurance MEDICARE PART A & B [employer] [facility] MEDICARE SUPPLEMENT MEDICARE PART A & B [facility] EXTENSION MEDICARE SUPPLEMENT MEDICARE PART A & B [facility] MEDICARE SUPPLEMENT MEDICARE PART A & B [employer] MEDICARE SUPPLEMENT MEDICARE PART A & B [employer] MEDICARE SUPPLEMENT MEDICARE PART A & B [facility] EXTENSION MEDICARE SUPPLEMENT MEDICARE PART A & B [employer] MEDICARE SUPPLEMENT MEDICARE PART A & B [employer] MEDICARE SUPPLEMENT MEDICARE PART A & B [facility] MEDICARE SUPPLEMENT Care Teams Pumper Head Relationship Specialty Start Date End Date Johnnie Hawk MD [address] [place] [address] [place] [id number] PCP - General Internal Medicine 03/08/20 Additional Source Comments The information contained in this document represents components of the legal health record. It is not the complete legal health record.[facility]
== END 2025-09-02 10:55 | disposition home or self-care (01) ==
LOC: HO.HCS 10:35
PROVIDERS: PCP Internal Medicine; Visit Provider Internal Medicine
DX: I25.10 Atherosclerotic heart disease of native coronary artery without angina pectoris (principal); I48.3 Typical atrial flutter; I45.2 Bifascicular block
CPT/HCPCS: 93010; 99214; G2211

== ENCOUNTER → 2025-09-02 10:34 | Outpatient (BNVA) | payer MEDICARE, OTHER, SELFPAY | PROVIDERS: PCP Internal Medicine; Visit Provider Internal Medicine | DX: I48.3 Typical atrial flutter (principal); I25.10 Atherosclerotic heart disease of native coronary artery without angina pectoris; I10 Essential (primary) hypertension; I45.2 Bifascicular block | CPT/HCPCS: 93005; 99212 ==